=== PATIENT | female | born 1955 | race Caucasian/White ===

== ENCOUNTER 2017-10-29 09:08 | Day surgery (SDC) | payer BC ==
--- OUTSIDE RECORDS SUMMARY | 2017-10-29 09:12 | XMS REPORT | Clinical Summary ---
:1955 Author Organization [facility] Address [address] [place] [address] Care Team Providers Name Role Phone Bienvenido Adler MD Primary Care Provider Allergies Active Allergy Reactions Severity Noted Date Comments Amoxicillin-Pot Clavulanate Swelling 06/22/2017 Hives and difficulty breathing Iodine Swelling 06/22/2017 Hives and difficulty breathing Penicillin G Swelling 06/22/2017 Hives and difficulty breathing Current Medications Prescription Sig. Disp. Refills Start End Date Status Date folic acid Take 1 mg by mouth Active (FOLVITE) 1 MG daily. tablet metoprolol Take 25 mg by Active succinate XL mouth daily. (TOPROL-XL) 25 mg 24 hr tablet potassium chloride Take 10 mEq by Active (K-DUR,KLOR-CON) 10 mouth daily. MEQ CR tablet VITAMIN B COMPLEX Take 100 mg by Active (B COMPLEX 1 ORAL) mouth daily. pantoprazole Take 40 mg by Active (PROTONIX) 20 MG EC mouth 2 (two) tablet times a day. levothyroxine Take 50 mcg by Active (SYNTHROID, mouth every LEVOXYL) 50 mcg morning. tablet furosemide (LASIX) Take 80 mg by Active 40 mg tablet mouth daily. spironolactone Take 100 mg by Active (ALDACTONE) 100 MG mouth daily. tablet furosemide (LASIX) Take by mouth 2 07/01/20 Discontinued 40 mg tablet (two) times a day. 17 spironolactone Take 100 mg by 07/01/20 Discontinued (ALDACTONE) 100 MG mouth daily. 17 tablet potassium chloride Take 10 mEq by 07/01/20 Discontinued (KLOR-CON) 20 mEq mouth daily. 17 packet cyanocobalamin 1000 Take 100 mcg by 07/01/20 Discontinued MCG tablet mouth daily. 17 metoprolol Take 25 mg by 07/01/20 Discontinued succinate XL mouth daily. 17 (TOPROL-XL) 25 mg 24 hr tablet metoprolol tartrate Take 1 tablet (25 60 tablet 0 07/01/20 Discontinued (LOPRESSOR) 25 mg mg total) by mouth 7 17 tablet 2 (two) times a day for 30 days. Hold dose for Systolic BP < 110 mmHg furosemide (LASIX) Take 1 tablet (40 60 tablet 0 07/01/20 Discontinued 40 mg tablet mg total) by mouth 7 17 2 (two) times a day for 30 days. Do start taking Lasix until Wednesday07/05/2017 spironolactone Take 1 tablet (100 30 tablet 0 07/01/20 Discontinued (ALDACTONE) 100 MG mg total) by mouth 7 17 tablet daily for 30 days. Do start taking Spironolactone until Wednesday07/05/2017 potassium chloride Take 10 mEq by 15 packet 0 07/01/20 Discontinued (KLOR-CON) 20 mEq mouth daily for 30 7 17 packet days. Do start taking Potassium until Wednesday07/05/2017 pantoprazole Take 1 tablet (40 60 tablet 0 07/01/20 Discontinued (PROTONIX) 40 MG EC mg total) by mouth 7 17 tablet 2 (two) times a day for 30 days. levothyroxine Take 1 tablet (50 30 tablet 0 07/01/20 Discontinued (SYNTHROID, mcg total) by 7 17 LEVOXYL) 50 mcg mouth daily for 30 tablet days. B complex-vitamin Take 1 tablet by 30 tablet 0 07/01/20 Discontinued C-folic acid mouth daily for 30 7 17 (FOLBEE PLUS 5 MG) days. May use over 5 mg tablet per the counter tablet Centrum chewable multivitamin thiamine 100 MG Take 1 tablet (100 30 tablet 0 07/01/20 Discontinued tablet mg total) by mouth 7 17 daily for 30 days. furosemide (LASIX) Take 1 tablet (40 60 tablet 0 07/01/20 Discontinued 40 mg tablet mg total) by mouth 7 17 2 (two) times a day for 30 days. Do not start taking Lasix until Wednesday07/05/2017 potassium chloride Take 10 mEq by 15 packet 0 07/01/20 Discontinued (KLOR-CON) 20 mEq mouth daily for 30 7 17 packet days. Do not start taking Potassium until Wednesday07/05/2017 spironolactone Take 1 tablet (100 30 tablet 0 07/01/20 Discontinued (ALDACTONE) 100 MG mg total) by mouth 7 17 tablet daily for 30 days. Do not start taking Spironolactone until Wednesday07/05/2017 B complex-vitamin Take 1 tablet by 30 tablet 0 08/01/19 C-folic acid mouth daily for 30 7 18 (FOLBEE PLUS 5 MG) days. May use over 5 mg tablet per the counter tablet Centrum chewable multivitamin furosemide (LASIX) Take 1 tablet (40 60 tablet 0 08/04/19 40 mg tablet mg total) by mouth 7 18 2 (two) times a day for 30 days. Do not start taking Lasix until Wednesday07/05/2017 levothyroxine Take 1 tablet (50 30 tablet 0 08/01/19 (SYNTHROID, mcg total) by 7 18 LEVOXYL) 50 mcg mouth daily for 30 tablet days. metoprolol tartrate Take 1 tablet (25 60 tablet 0 07/31/19 (LOPRESSOR) 25 mg mg total) by mouth 7 18 tablet 2 (two) times a day for 30 days. Hold dose for Systolic BP < 110 mmHg pantoprazole Take 1 tablet (40 60 tablet 0 07/31/19 (PROTONIX) 40 MG EC mg total) by mouth 7 18 tablet 2 (two) times a day for 30 days. potassium chloride Take 10 mEq by 15 packet 0 07/31/19 (KLOR-CON) 20 mEq mouth daily for 30 7 18 packet days. Do not start taking Potassium until Wednesday07/05/2017 spironolactone Take 1 tablet (100 30 tablet 0 08/04/19 (ALDACTONE) 100 MG mg total) by mouth 7 18 tablet daily for 30 days. Do not start taking Spironolactone until Wednesday07/05/2017 thiamine 100 MG Take 1 tablet (100 30 tablet 0 08/01/19 tablet mg total) by mouth 7 18 daily for 30 days. (can buy from [id number]) Active Problems Problem Noted Date Nonalcoholic fatty liver disease 08/23/2017 Alcoholic cirrhosis of liver 08/23/2017 Lymphedema 08/23/2017 Ascites 08/23/2017 Disorder of liver 06/22/2017 Electrolyte and fluid disorder 06/22/2017 Fluid overload 06/22/2017 Portal hypertension 06/22/2017 Overview: Added automatically from request for surgery [id number] Anemia 06/22/2017 Overview: Added automatically from request for surgery [id number] Encounters Date Type Specialty Care Team Description 09/13/19 Transcribe Transplant Dami Carpio 18 Orders Filiberto 08/26/19 Telephone Transplant Pricila Coelho Call 18 Jana Mendiola MA 08/23/19 Telephone Transplant Pedro, Referral - Liver Txp 18 JENNIFER Hamm 06/30/20 Telephone Transplant Pedro, other (possible liver 17 JENNIFER Hammlocomotive engineer diesel referral-social/financial screening first. ) 06/25/20 Anesthesia Gastroenterology Dhother, 17 Event Sudheer Ahumada MD 06/25/20 Procedure Pass Gastroenterology 17 06/25/20 Procedure Pass Gastroenterology 17 06/25/20 Surgery Gastroenterology Gerry Arriola ESOPHAGOGASTRODUODENOSCOPY Melissa Valero MD (EGD) 06/22/20 [facility], Portal hypertension (Primary Dx); 17 - Encounter Medicine MD Rochelle Anemia, unspecified type; 07/01/20 Disorder of liver 17 after 10/28/2016 Immunizations Name Dates Previously Given Next Due FLUCELVAX QUAD PF (0.5mL syringe) 07/01/2017 Social History Tobacco Use Types Packs/Day Years Used Date Never Smoker Smokeless Tobacco: Never Used Alcohol Use Drinks/Week oz/Week Comments Yes 90 Cans of beer 54.0 Sex Assigned at Date Recorded Not on file Last Filed Vital Signs Vital Sign Reading Time Taken Blood Pressure 123/58 07/01/2017 3:26 PM GUIDE DOG TRAINER Pulse 77 07/01/2017 3:26 PM GUIDE DOG TRAINER Temperature 35.8 C (96.4 F) 07/01/2017 3:26 PM GUIDE DOG TRAINER Respiratory Rate 18 07/01/2017 3:26 PM GUIDE DOG TRAINER Oxygen Saturation 98% 07/01/2017 3:26 PM GUIDE DOG TRAINER Inhaled Oxygen Concentration - - Weight 73 kg (161 lb) 08/26/2017 3:10 PM GUIDE DOG TRAINER Height 157.5 cm (5' 2") 08/26/2017 3:10 PM GUIDE DOG TRAINER Body Mass Index 29.45 08/26/2017 3:10 PM GUIDE DOG TRAINER Plan of Treatment Health Maintenance Due Date Last Done Comments PAP SMEAR 1975 COLONOSCOPY 2004 MAMMOGRAM 2004 ZOSTER VACCINE 2014 INFLUENZA VACCINE 02/23/2018 07/01/2017 Procedures Procedure Name Priority Date/Time Associated Comments Diagnosis ESOPHAGOGASTRODUODENOSCOPY 06/25/2017 Portal (EGD) 8:00 AM GUIDE DOG TRAINER hypertension ECHOCARDIOGRAM 2D COMPLETE W Routine 06/24/2017 Results for MMODE SPECTRAL COLOR DOPPLER 9:39 AM GUIDE DOG TRAINER this procedure ([id number]) are in the results section. after 10/28/2016 Results Smear review (07/01/2017 5:13 AM)Only the most recent of7 resultswithin the time period is included. Component Value Ref Range Platelet slide review Mkd decreased (A) Anisocytosis Moderate Polychromasia Moderate Ovalocytes Moderate Enlarged platelets Moderate (A) Giant platelets Occasional Specimen Performing Laboratory [facility] DEPARTMENT OF PATHOLOGY AND GENOMIC MEDICINE [address] [place] [address] Direct Janine' (JESENIA) (07/01/2017 5:13 AM) Component Value Ref Range IgG Janine NEG Anti-complement NEG Specimen Performing Laboratory Blood [facility] DEPARTMENT OF PATHOLOGY AND GENOMIC MEDICINE [address] [place] [address] Estimated GFR (07/01/2017 5:13 AM)Only the most recent of10 resultswithin the time period is included. Component Value Ref Range GFR Non Af Amer 35 (A) mL/min/1.73 m2 GFR Af Amer 42 (A) mL/min/1.73 m2 Comment: Chronic kidney disease: <60 mL/min/1.73m2 Kidney failure: <15 mL/min/1.73m2 The estimated GFR is calculated from the IDMS-traceable Modification of Diet in Renal Disease Equation. The accuracy of the calculation is poor when the creatinine is normal. Calculated values >90 mL/min/1.73m2 are not reported. This equation has not been validated in children (<18 years), women, the elderly (>70 years), or ethnic groups other than Caucasians and Americans. Specimen Performing Laboratory Plasma specimen [facility] DEPARTMENT OF PATHOLOGY AND [facility] [address] [place] [address] Immunofixation, serum (07/01/2017 5:13 AM) Component Value Ref Range Immunofixation, serum SEE COMMENTComment: See electrophoresis report below. Specimen Performing Laboratory Serum [facility] DEPARTMENT OF PATHOLOGY AND [address] [address] Prothrombin time with INR (07/01/2017 5:13 AM)Only the most recent of10 resultswithin the time period is included. Component Value Ref Range Prothrombin time 24.4 (H) 12.0 - 15.0 sec INR 2.2 Comment: The International Normalized Ratio (INR) is a therapeutic monitoring tool for patients who are stable on oral anticoagulant therapy. An INR of 2.0-3.0 is suggested for deep vein thrombosis/pulmonary embolism. Specimen Performing Laboratory Blood [facility] OF PATHOLOGY AND [address] [address] Reticulocyte count (07/01/2017 5:13 AM)Only the most recent of2 resultswithin the time period is included. Component Value Ref Range Retic %, auto 3.8 (H) 0.5 - 2.1 % Retic absolute, auto 0.0975 0.0210 - 0.1155 m/uL Specimen Performing Laboratory Blood [facility] DEPARTMENT OF PATHOLOGY AND [address] [address] CBC with platelet and differential (07/01/2017 5:13 AM)Only the most recent of10 resultswithin the time period is included. Component Value Ref Range WBC 3.63 (L) 4.50 - 11.00 k/uL RBC 2.54 (L) 4.20 - 5.50 m/uL HGB 8.5 (L) 12.0 - 16.0 g/dL HCT 25.5 (L) 37.0 - 47.0 % MCV 100.4 (H) 82.0 - 100.0 fL MCH 33.5 27.0 - 34.0 pg MCHC 33.3 31.0 - 37.0 g/dL RDW - SD 72.7 (H) 37.0 - 55.0 fL MPV 11.5 8.8 - 13.2 fL Platelet count 44 (L) 150 - 400 k/uL Nucleated RBC 0.00 /100 WBC Neutrophils 53.4 39.0 - 69.0 % Lymphocytes 30.0 25.0 - 45.0 % Monocytes 11.3 (H) 0.0 - 10.0 % Eosinophils 3.9 0.0 - 5.0 % Basophils 0.8 0.0 - 1.0 % Immature granulocytes 0.6Comment: "Immature granulocytes" 0.0 - 1.0 % (promyelocytes, myelocytes, metamyelocytes) Specimen Performing Laboratory Blood [facility] DEPARTMENT OF PATHOLOGY AND [facility] [address] [place] [address] Serum electrophoresis (07/01/2017 5:13 AM) Component Value Ref Range Protein 6.0 (L) 6.3 - 8.3 g/dL Comment: 4.6-7.0 g/dL 1 week 4.4-7.6 g/dL 7 months-1year5.1-7.3 g/dL 1-2 years5.6-7.5 g/dL >3 years6.0-8.0 g/dL 18-150 6.3-8.3 g/dL SPE albumin 4.97 4.00 - 5.30 g/dL SPE alpha 1 0.09 (L) 0.10 - 0.25 g/dL SPE alpha 2 0.14 (L) 0.58 - 0.84 g/dL SPE beta 0.19 (L) 0.50 - 1.10 g/dL SPE gamma 0.61 0.60 - 1.30 g/dL SPE extended interpretation See Comment Comment: Abnormal serum protein study due to the presence of a band in the gamma region that immunofixes as monoclonal IgG [place]. This band is present at a concentration of 0.1 g/dL. Uninvolved gamma globulins are slightly decreased. Alpha-2 globulins are decreased most likely due to decreased haptoglobin and/or alpha-2 macroglobulin. 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 Component Value Ref Range Phosphorus 2.6 2.4 - 4.5 mg/dL Specimen Performing Laboratory Plasma specimen [facility] DEPARTMENT OF PATHOLOGY AND [address] [address] Magnesium level (07/01/2017 5:13 AM)Only the most recent of10 resultswithin the time period is included. Component Value Ref Range Magnesium 2.4 1.6 - 2.4 mg/dL Specimen Performing Laboratory Plasma specimen [facility] DEPARTMENT OF PATHOLOGY AND [address] [address] LDH (07/01/2017 5:13 AM)Only the most recent of2 resultswithin the time period is included. Component Value Ref Range LDH 188 87 - 225 U/L Specimen Performing Laboratory Plasma specimen [facility] DEPARTMENT PATHOLOGY [address] [address] Haptoglobin (07/01/2017 5:13 AM) Component Value Ref Range Haptoglobin <10 (L) 30 - 200 mg/dL Specimen Performing Laboratory Plasma specimen [facility] DEPARTMENT OF PATHOLOGY AND [address] [address] Comprehensive metabolic panel (07/01/2017 5:13 AM)Only the most recent of3 resultswithin the time period is included. Component Value Ref Range Sodium 145 135 - 148 mEq/L Potassium 3.9 3.5 - 5.0 mEq/L Chloride 97 (L) 98 - 112 mEq/L CO2 33 (H) 24 - 31 mEq/L Anion gap 15 7 - 15 mEq/L Comment: Starting from October , anion gap calculation no longer incorporates potassium. Please note the change. BUN 22 8 - 23 mg/dL Creatinine 1.5 (H) 0.5 - 0.9 mg/dL Glucose 97 65 - 99 mg/dL Calcium 9.7 8.8 - 10.2 mg/dL Protein 6.2 (L) 6.3 - 8.3 g/dL Comment: [place] 4.6-7.0 g/dL 1 week 4.4-7.6 g/dL 7 months-1year5.1-7.3 g/dL 1-2 years5.6-7.5 g/dL >3 years6.0-8.0 g/dL 18-150 6.3-8.3 g/dL Albumin 4.6 3.5 - 5.0 g/dL A/G ratio 2.9 0.7 - 3.8 Alkaline phosphatase 53 35 - 104 U/L AST 32 10 - 35 U/L ALT 6 5 - 50 U/L Total bilirubin 7.2 (H) 0.0 - 1.2 mg/dL Specimen Performing Laboratory Plasma specimen [facility] DEPARTMENT OF PATHOLOGY AND [address] [address] Prepare RBC, 2 Units (06/30/2017 10:30 AM)Only the most recent of2 resultswithin the time period is included. Component Value Ref Range Product name Red Blood Cells -1, Leukored Unit number [id number] Product code [id number] Dispense status Transfused Blood expiration date 20170707 Blood type code 6200 Blood type A POSITIVE Product name Red Blood Cells -1, Leukored Unit number [id number] Product code [id number] Dispense status Transfused Blood expiration date 20170706 Blood type code 6200 Blood type A POSITIVE Specimen Performing Laboratory [facility] DEPARTMENT OF PATHOLOGY AND [facility] [address] [place] [address] Type and screen (06/30/2017 10:30 AM)Only the most recent of2 resultswithin the time period is included. Component Value Ref Range ABO grouping A Rh type POS Antibody screen (gel) NEG Specimen Performing Laboratory Blood [facility] DEPARTMENT OF PATHOLOGY AND [address] [address] Manual differential (06/30/2017 6:33 AM) Component Value Ref Range Manual differential PERFORMED Neutrophils 58.0 39.0 - 69.0 % Lymphocytes 23.0 (L) 25.0 - 45.0 % Monocytes 11.0 (H) 0.0 - 10.0 % Eosinophils 6.0 (H) 0.0 - 5.0 % Basophils 0.0 0.0 - 1.0 % Metamyelocytes 1 % Promyelocytes 0 % Plasma cells 1 % Platelet slide review Mkd decreased (A) Anisocytosis Moderate Specimen Performing Laboratory [facility] DEPARTMENT OF PATHOLOGY AND [facility] [address] [place] [address] B natriuretic peptide (06/30/2017 6:33 AM)Only the most recent of5 resultswithin the time period is included. Component Value Ref Range BNP 341 (H) 0 - 100 pg/mL Specimen Performing Laboratory Blood [facility] DEPARTMENT OF PATHOLOGY AND GENOMIC MEDICINE [address] [place] [address] [place] Abdominal Doppler (06/29/2017 1:20 PM) Specimen Performing Laboratory [facility] [address] [place] [address] Narrative EXAMINATION:US ABDOMINAL DOPPLER CLINICAL HISTORY:cirrhosis COMPARISON:None. TECHNIQUE: Pierson scale, color Doppler and spectral waveform analysis of the hepatic vasculature. IMPRESSION: PORTAL VEIN:Main portal vein measures 1.2 cm, peak velocity measurement of 28.3 cm/s, within normal limits.Main, right and left portal veins are patent with appropriate hepatopedal flow. HEPATIC VEINS:The middle, right and left hepatic veins and IVC are patent and demonstrate acceptable waveforms. HEPATIC ARTERIES:The right and left hepatic arteries are identified with appropriate waveforms. SPLENIC ARTERY AND VEIN AND SMV:Splenic artery and vein at the splenic hilum are identified and are patent. Midline vessels are difficult to visualize including the SMV. Procedure Note Interface, Radiology Results Incoming - 06/29/2017 1:47 PM GUIDE DOG TRAINER EXAMINATION: US ABDOMINAL DOPPLER CLINICAL HISTORY: cirrhosis COMPARISON: None. TECHNIQUE: Pierson scale, color Doppler and spectral waveform analysis of the hepatic vasculature. IMPRESSION: PORTAL VEIN: Main portal vein measures 1.2 cm, peak velocity measurement of 28.3 cm/s, within normal limits. Main, right and left portal veins are patent with appropriate hepatopedal flow. HEPATIC VEINS: The middle, right and left hepatic veins and IVC are patent and demonstrate acceptable waveforms. HEPATIC ARTERIES: The right and left hepatic arteries are identified with appropriate waveforms. SPLENIC ARTERY AND VEIN AND SMV: Splenic artery and vein at the splenic hilum are identified and are patent. Midline vessels are difficult to visualize including the SMV. US Abdomen Complete (06/29/2017 12:30 PM) Specimen Performing Laboratory [facility] [address] [place] [address] Narrative EXAM: US ABDOMEN COMPLETE CLINICAL DATA:CIRRHOSIS COMPARISON: NONE. FINDINGS: 1.Liver contours are lobulated, and overall echogenicity mildly elevated. Findings compatible with clinical history of cirrhosis. A small right lobe liver cyst is noted measuring 7 mm. No other lesions are noted. Gallbladder not visualized and may be status post prior removal. Common duct is 6 mm and not dilated. 2.Splenomegaly measuring 15.6 cm in length. Moderate ascites noted. 3.Kidneys are 10 to 11 cm in length each, with no mass or hydronephrosis. Midline structures difficult to visualize due to body habitus and overlying bowel gas, but the intrahepatic IVC appears patent. Abdominal aorta and pancreas are not well seen. IMPRESSION: 1. Abdominal ultrasound findings as above. [facility]-[id number] Procedure Note [facility], Radiology Results Incoming - 06/29/2017 1:50 PM GUIDE DOG TRAINER EXAM: US ABDOMEN COMPLETE CLINICAL DATA: CIRRHOSIS COMPARISON: NONE. FINDINGS: 1. Liver contours are lobulated, and overall echogenicity mildly elevated. Findings compatible with clinical history of cirrhosis. A small right lobe liver cyst is noted measuring 7 mm. No other lesions are noted. Gallbladder not visualized and may be status post prior removal. Common duct is 6 mm and not dilated. 2. Splenomegaly measuring 15.6 cm in length. Moderate ascites noted. 3. Kidneys are 10 to 11 cm in length each, with no mass or hydronephrosis. Midline structures difficult to visualize due to body habitus and overlying bowel gas, but the intrahepatic IVC appears patent. Abdominal aorta and pancreas are not well seen. IMPRESSION: 1. Abdominal ultrasound findings as above. [facility]-[id number] Hepatic function panel (06/28/2017 8:23 AM)Only the most recent of6 resultswithin the time period is included. Component Value Ref Range Albumin 4.2 3.5 - 5.0 g/dL Total bilirubin 5.7 (H) 0.0 - 1.2 mg/dL Bilirubin direct 1.1 (H) 0.0 - 0.3 mg/dL Alkaline phosphatase 45 35 - 104 U/L Protein 5.8 (L) 6.3 - 8.3 g/dL Comment: [place] 4.6-7.0 g/dL 1 week 4.4-7.6 g/dL 7 months-1year5.1-7.3 g/dL 1-2 years5.6-7.5 g/dL >3 years6.0-8.0 g/dL 18-150 6.3-8.3 g/dL ALT 6 5 - 50 U/L AST 18 10 - 35 U/L Specimen Performing Laboratory Plasma specimen [facility] DEPARTMENT OF PATHOLOGY AND GENOMIC MEDICINE [address] [place] [address] Basic metabolic panel (06/28/2017 8:23 AM)Only the most recent of7 resultswithin the time period is included. Component Value Ref Range Sodium 145 135 - 148 mEq/L Potassium 3.3 (L) 3.5 - 5.0 mEq/L Chloride 96 (L) 98 - 112 mEq/L CO2 34 (H) 24 - 31 mEq/L Anion gap 15 7 - 15 mEq/L Comment: Starting from October , anion gap calculation no longer incorporates potassium. Please note the change. BUN 19 8 - 23 mg/dL Creatinine 1.4 (H) 0.5 - 0.9 mg/dL Glucose 95 65 - 99 mg/dL Calcium 9.4 8.8 - 10.2 mg/dL Specimen Performing Laboratory Plasma specimen [facility] DEPARTMENT OF PATHOLOGY AND GENOMIC MEDICINE [address] [place] [address] Hemochromatosis (HFE) 3 mutations (06/25/2017 5:01 AM) Component Value Ref Range HFE PCR specimen Whole Blood C282Y hemochromatosis mutation Negative H63D hemochromatosis mutation Negative S65C hemochromatosis mutation Negative Hemochromatosis mutation See Note interpretation Comment: Indication for testing: Carrier screening or diagnostic testing for hereditary hemochromatosis. Hemochromatosis Interpretive Results: Negative WT: C282Y: NegativeThe patient is negative for the HFE C282Y mutation. H63D: NegativeThe patient is negative for the HFE H63D mutation. S65C: NegativeThe patient is negative for the HFE S65C mutation. Mutations in unidentified genes or other mutations in the HFE gene are not ruled out. This result has been reviewed and approved by Frances Brewer M.D., Ph.D. BACKGROUND INFORMATION: Hemochromatosis (HFE) 3 Mutations CHARACTERISTICS: Disorder of iron metabolism resulting in excessive iron storage leading to increased skin pigmentation, arthritis, hypogonadism, diabetes mellitus, heart arrhythmias/failure, cirrhosis and liver carcinoma. INCIDENCE: One in 300 individuals of [place] descent; unknown in other ethnicities. INHERITANCE: Autosomal recessive. PENETRANCE: 5 percent of C282Y homozygotes, 1 percent of C282Y/H63D compound heterozygotes and rare H63D homozygotes develop clinical symptoms. CAUSE: Two pathogenic HFE gene mutations on opposite chromosomes. MUTATIONS TESTED: p.C282Y (c.845G>A), p.H63D (c.187C>G), and p.S65C (c.193A>T). CLINICAL SENSITIVITY: 85 percent of hereditary hemochromatosis in Northern Europeans is caused by C282Y homozygosity and 5 percent by C282Y/H63D compound heterozygosity. METHODOLOGY: PCR and fluorescence monitoring. ANALYTICAL SENSITIVTY AND SPECIFICITY: 99 percent. LIMITATIONS: HFE mutations, other than those targeted, will not be detected. Diagnostic errors can occur due to rare sequence variations. This test is performed pursuant to an agreement with[employer]. Test developed and characteristics determined by [facility]. See Compliance Statement C: [employer] Performed by [facility], [address] [place] [id number] [email or web address], Myke Lorenzo MD - Lab. Director Specimen Performing Laboratory Serum [facility] [address] [place] [address] Hemoglobin & hematocrit (06/24/2017 12:55 PM)Only the most recent of2 resultswithin the time period is included. Component Value Ref Range HGB 7.8 (L) 12.0 - 16.0 g/dL HCT 23.9 (L) 37.0 - 47.0 % Specimen Performing Laboratory Blood [facility] DEPARTMENT OF PATHOLOGY AND GENOMIC MEDICINE [address] [place] [address] Pv duplex venous lower extremity (06/24/2017 10:43 AM) [facility] [address] [place] [address] Narrative Vascular Ultrasound Laboratory Lower Extremity Venous Report [address] [place] [address] Pat.Name:SUKHJINDER HOPKINS Pat.ID:[id number] .Date: 06/24/2017Refer.MD:DANNY STEEN MD Exam Time: 10:09:00 AM Study Type:LE Venous DOBAge:1955,62Y Sex: FEMALE Sonogrphr: Pj Minaya. Stat.:Inpatient Room:[facility] TapeVol: [place], CPT - 4: 86718 Echo Event ID:[id number] Order ID:[id number] Reason for Study:Bilateral leg edema and abdominal swelling, 4 month fluid overload, alcoholic cirrhosis Race:C SUMMARY: DUPLEX SCAN OBSERVATIONS Deep VeinsSuperficial Veins RightLeft RightLeft EIV Normal NormalGSV (prox) NormalNormal CFV Normal Normal (above knee) Femoral Normal Normal GSV (dist) Normal Normal Profunda Normal Normal (below knee) Popliteal Normal Normal PT (prox) Not Visualized Not visualizedSSV Not Visualized Not Visualized PT (dist) Not Visualized Normal Peroneal Not Visualized Not Visualized RIGHT: There is normal compressibility with no evidence of echogenic material noted within the lumen of the visualized veins. Colorflow and Doppler signals are normal. LEFT:There is normal compressibility with no evidence of echogenic material noted within the lumen of the visualized veins. Colorflow and Doppler signals are normal. PRELIMINARY FINDINGS 1. Normal venous duplex exam of the visualized veins. PHYSICIAN INTERPRETATION 1. Normal venous duplex exam of the visualized veins. Signed 06/24/2017 02:44 PM Shelli Miller MD, RPVI Procedure Note Interface, Radiology Results In - 06/24/2017 2:44 PM [facility] Vascular Ultrasound Laboratory Lower Extremity Venous Report [address] [place] [address] Pat.Name: SUKHJINDER HOPKINS Pat.ID: [id number] .Date: 06/24/2017 Refer.MD: DANNY STEEN MD Exam Time: 10:09:00 AM Study Type:LE Venous Age: 10 1955,62Y Sex: FEMALE Sonogrphr: Brandi Alcaraz RVT Pat. Stat.:Inpatient Room: [facility] Tape Vol: [place], CPT - 4: 15596 Echo Event ID:[id number] Order ID: [id number] Reason for Study:Bilateral leg edema and abdominal swelling, 4 month fluid overload, alcoholic cirrhosis Race: C SUMMARY: DUPLEX SCAN OBSERVATIONS Deep Veins Superficial Veins Right Left Right Left EIV Normal Normal GSV (prox) Normal Normal CFV Normal Normal (above knee) Femoral Normal Normal GSV (dist) Normal Normal Profunda Normal Normal (below knee) Popliteal Normal Normal PT (prox) Not Visualized Not visualized SSV Not Visualized Not Visualized PT (dist) Not Visualized Normal Peroneal Not Visualized Not Visualized RIGHT: There is normal compressibility with no evidence of echogenic material noted within the lumen of the visualized veins. Colorflow and Doppler signals are normal. LEFT:There is normal compressibility with no evidence of echogenic material noted within the lumen of the visualized veins. Colorflow and Doppler signals are normal. PRELIMINARY FINDINGS 1. Normal venous duplex exam of the visualized veins. PHYSICIAN INTERPRETATION 1. Normal venous duplex exam of the visualized veins. Signed 06/24/2017 02:44 PM Shelli Miller MD, VI Echocardiogram complete w contrast and 3D if needed (06/24/2017 9:39 AM) Specimen Performing Laboratory [facility] [address] [place] [address] Narrative Echocardiography Report [address] [place] [address].Name:SUKHJINDER HOPKINS Pat.ID:[id number] .Date: 06/24/2017Refer.MD:ROCHELLE FIGUEROA MD Exam Time: 8:29:00 AMStudy Type:Routine Echo Height:61inWeight:153lb BSA: 1.69 m2 DOBAge:1955,62Y Sex: FEMALEBP:165/80 HR:85 bpm Sonogrphr: Natividad Romero RDCS, Jennifer Jaquez Pat. Stat.:Inpatient Room:[facility] Study Status:Final Echo Event ID:[id number] Order ID:[id number] Reason for Study:Cirrhosis, rule out CHF or pulmonary hypertension Cirrhosis,rule out CHF or pulmonary hypertension History / Clinical:Hyperlipidemia, Hypertension Procedures:2D Echo, Colorflow Doppler Race:C SUMMARY: LV EF is hyperdynamic. RV systolic function is normal. LV filling pressure is normal. Suboptimal/insufficient TR jet. Estimated PA systolic pressure is at least 41-46 mmHg, assuming a mean RAP of 5-10 mmHg. FINDINGS: LV: LV size is mildly enlarged. There is moderate eccentric LV hypertrophy.LV EF is hyperdynamic. Overall wall motion is hyperdynamic.Estimated EF is >70%. RV: RV size is normal. RV systolic function is normal. RV wall motionis normal. LA: LA volume is severely enlarged. RA: RA size is normal. AO: Aortic root diameter is normal. CHICA: No pericardial effusion. AV: No structural AV abnormalities noted. MV: Mild thickening and calcification of mitral leaflets. Mild tomoderate mitral regurgitation. PV: No structural PV abnormalities noted. TV: No structural TV abnormalities noted. A trace of tricuspid regurgitation Kemp: LV relaxation is normal. LV filling pressure is normal. Other:Suboptimal/insufficient TR jet. Estimated PA systolic pressureis at least 41-46 mmHg, assuming a mean RAP of 5-10mmHg. Ascites is present. MEASUREMENTS: DOPPLER LVOT Stroke Vol LVOT 1.8 cmLVOT CO9.1 l/min LVOT TVI42.2 cmLVOT CI5.4 l/m/m2 LVOT Tm338 [id number] bpm LVOT SV107.3 ml 2D Parasternal Long Watson LVOT 2 cmLA Ds4 cm LVIDd5.3 cmIndex 3.2 cm/m Ao Rtd 2.9 cm Index1.7 cm/m LVIDs2.7 cmLV Zofb041.6 g(87-129) LV%fs 49.2 % LVM Index 128.2 g/m2 IVSd 1 cmRWT0.4 LVPWd1.1 cm LA Sng Plane LA Area 24.1 cm2(8.8-23.4) LA Vol78.6 ml Index46.5 ml/m LA LngAx 6.3 cm RA Sng Plane RA Area 15.7 cm2(8.3-19.5) RA Vol39.8 ml Index23.6 ml/m RA LngAx 5 cm Signed 06/24/2017 02:15 PM Malathi Keys M.D. Procedure Note Interface, Radiology Results In - 06/24/2017 2:15 PM [employer] TRA[employer] Echocardiography Report [address] [place] [address] Pat.Name: SUKHJINDER HOPKINS Pat.ID: [id number] .Date: 06/24/2017 Refer.MD: ROCHELLE FIGUEROA MD Exam Time: 8:29:00 AM Study Type:Routine Echo Height: 61in Weight: 153lb BSA: 1.69 m2 Age: 11 1955,62Y Sex: FEMALE BP: 165/80 HR: 85 bpm Sonogrphr: Natividad Romero RDCS, Sara Burrell Pat. Stat.:Inpatient Room: [facility] Study Status:Final Echo Event ID:[id number] Order ID: [id number] Reason for Study:Cirrhosis, rule out CHF or pulmonary hypertension Cirrhosis,rule out CHF or pulmonary hypertension History / Clinical:Hyperlipidemia, Hypertension Procedures:2D Echo, Colorflow Doppler Race: C SUMMARY: LV EF is hyperdynamic. RV systolic function is normal. LV filling pressure is normal. Suboptimal/insufficient TR jet. Estimated PA systolic pressure is at least 41-46 mmHg, assuming a mean RAP of 5-10 mmHg. FINDINGS: LV: LV size is mildly enlarged. There is moderate eccentric LV hypertrophy. LV EF is hyperdynamic. Overall wall motion is hyperdynamic. Estimated EF is >70%. RV: RV size is normal. RV systolic function is normal. RV wall motion is normal. LA: LA volume is severely enlarged. RA: RA size is normal. AO: Aortic root diameter is normal. CHICA: No pericardial effusion. AV: No structural AV abnormalities noted. MV: Mild thickening and calcification of mitral leaflets. Mild to moderate mitral regurgitation. PV: No structural PV abnormalities noted. TV: No structural TV abnormalities noted. A trace of tricuspid regurgitation Kemp: LV relaxation is normal. LV filling pressure is normal. Other: Suboptimal/insufficient TR jet. Estimated PA systolic pressure is at least 41-46 mmHg, assuming a mean RAP of 5-10 mmHg. Ascites is present. MEASUREMENTS: DOPPLER LVOT Stroke Vol LVOT 1.8 cm LVOT CO 9.1 l/min LVOT TVI 42.2 cm LVOT CI 5.4 l/m/m2 LVOT Tm 338 msec HR 85 bpm LVOT SV 107.3 ml 2D Parasternal Long Watson LVOT 2 cm LA Ds 4 cm LVIDd 5.3 cm Index 3.2 cm/m Ao Rtd 2.9 cm Index 1.7 cm/m LVIDs 2.7 cm LV Mass 216.6 g (87-129) LV%fs 49.2 % LVM Index 128.2 g/m2 IVSd 1 cm RWT 0.4 LVPWd 1.1 cm LA Sng Plane LA Area 24.1 cm2 (8.8-23.4) LA Vol 78.6 ml Index 46.5 ml/m LA LngAx 6.3 cm RA Sng Plane RA Area 15.7 cm2 (8.3-19.5) RA Vol 39.8 ml Index 23.6 ml/m RA LngAx 5 cm Signed 06/24/2017 02:15 PM Malathi Keys M.D. Total iron binding capacity (06/24/2017 5:32 AM) Component Value Ref Range Iron level 84 37 - 145 ug/dL Iron binding capacity 101 (L) 200 - 400 ug/dL % Saturation 83.2 (H) 15.0 - 38.0 % Specimen Performing Laboratory Plasma specimen [facility] [address] [address] Thyroperoxidase antibody (06/24/2017 5:32 AM) Component Value Ref Range Thyroperoxidase Ab 1.6 0.0 - 9.0 IU/mL Specimen Performing Laboratory Serum [facility] [address] [address] Folate level (06/24/2017 5:32 AM) Component Value Ref Range Folate 14.1 4.8 - 24.2 ng/mL Specimen Performing Laboratory Serum [facility] [address] [address] Ferritin level (06/24/2017 5:32 AM) Component Value Ref Range Ferritin level 307 (H) 13 - 150 ng/mL Specimen Performing Laboratory Plasma specimen [facility] [address] [address] Vitamin B12 level (06/24/2017 5:32 AM) Component Value Ref Range Vitamin B12 1,120 (H) 211 - 946 pg/mL Comment: Significant overlap exists between normal and deficiency states. However, most patients with deficiencies will have Serum B12 <200 pg/mL. Specimen Performing Laboratory Serum [facility] MED[facility] [address] [place] [address] WANG (06/24/2017 4:00 AM) Component Value Ref Range WANG screen Not Detected Not-Detected Specimen Performing Laboratory Blood [facility] [address] [address] XR Chest 1 Vw (06/23/2017 11:43 AM) Specimen Performing Laboratory [facility] [address] [place] [address] Narrative EXAMINATION:XR CHEST 1 VW CLINICAL HISTORY:SHORTNESS OF BREATH COMPARISON:None IMPRESSION: Lungs are slightly hypoinflated. No definite infiltrate, consolidation, pleural effusion or pneumothorax. Enlarged cardiac silhouette. Osseous degenerative changes. [id number] Procedure Note Interface, Radiology Results Incoming - 06/23/2017 12:04 PM GUIDE DOG TRAINER EXAMINATION: XR CHEST 1 VW CLINICAL HISTORY: SHORTNESS OF BREATH COMPARISON: None IMPRESSION: Lungs are slightly hypoinflated. No definite infiltrate, consolidation, pleural effusion or pneumothorax. Enlarged cardiac silhouette. Osseous degenerative changes. [facility]-[id number] XR Abdomen 1 Vw (06/23/2017 11:42 AM) Specimen Performing Laboratory [facility] [address] [place] [address] Narrative EXAMINATION:XR ABDOMEN 1 VW CLINICAL HISTORY:Distention COMPARISON:None. FINDINGS: There is gas in the colon. No dilated loops of small bowel are seen. IMPRESSION: As above [facility]-[id number] Procedure Note [facility], Radiology Results Incoming - 06/23/2017 12:10 PM GUIDE DOG TRAINER EXAMINATION: XR ABDOMEN 1 VW CLINICAL HISTORY: Distention COMPARISON: None. FINDINGS: There is gas in the colon. No dilated loops of small bowel are seen. IMPRESSION: As above [facility]-[id number] US Limited (06/23/2017 11:31 AM) Specimen Per[facility] [address] [place] [address] Narrative EXAMINATION:US LIMITED CLINICAL HISTORY:ASCITES, Max removal of ascites 5 liters COMPARISON:None. IMPRESSION: 1.Limited abdominal ultrasound demonstrates small amount of fluid in the upper quadrants with the various trace amount of fluid in the right lower quadrant and a very small amount of fluid in left lower quadrant. Therapeutic paracentesis was not performed due to the small quantity of ascites. [facility]-[id number] Procedure Note Interface, Radiology Results Incoming - 06/24/2017 8:57 AM [employer]IDE DOG TRAINER EXAMINATION: US LIMITED CLINICAL HISTORY: ASCITES, Max removal of ascites 5 liters COMPARISON: None. IMPRESSION: 1. Limited abdominal ultrasound demonstrates small amount of fluid in the upper quadrants with the various trace amount of fluid in the right lower quadrant and a very small amount of fluid in left lower quadrant. Therapeutic paracentesis was not performed due to the small quantity of ascites. [facility]-[id number] Alpha fetoprotein (06/23/2017 5:11 AM) Component Value Ref Range Alpha fetoprotein 4.0 0.0 - 8.3 ng/mL Comment: The Oksana 8000 AFP immunoassay was used. Results obtained with different assay methods or kits should not be used interchangeably and may be different. Specimen Performing Laboratory Serum [facility] [address] [address] Thyroid stimulating hormone (06/23/2017 5:11 AM) Component Value Ref Range TSH 15.98 (H) 0.27 - 4.20 uIU/mL Specimen Performing Laboratory Plasma specimen [address] [address] T4 (06/23/2017 5:11 AM) Component Value Ref Range T4 4.2 (L) 4.5 - 11.7 ug/dL Specimen Performing Laboratory Plasma specimen [address] [address] Hemoglobin A1c (06/23/2017 5:11 AM) Component Value Ref Range Hemoglobin A1C 3.5 (L) 4.0 - 5.6 % Comment: HbA1c cutoffs for diagnosing diabetes: 4.0% - 5.6%=normal 5.7% - 6.4%=increased risk for diabetes (prediabetes) >=6.5%=diabetes Goals for glycemic control (ADA 2016) < 7.0%Target for non adults with diabetes. More or less stringent targets may be appropriate for individual patients. <7.5% Target for Children and adolescents with type 1 diabetes. Result double-checked. Specimen Performing Laboratory Blood [address] [address] Urinalysis, automated with microscopy (06/23/2017 5:00 AM) Component Value Ref Range Color, UA Straw Appearance, UA Clear Specific gravity, UA 1.005 1.001 - 1.035 pH, UA 5.0 5.0 - 8.5 Protein, UA Negative Negative Glucose, UA Negative Negative Ketones, UA Negative Negative Bilirubin, UA Negative Negative Blood, UA Large (A) Negative Nitrite, UA Negative Negative Urobilinogen, UA <2.0 <2.0 Leukocyte esterase, UA Negative Negative WBC, UA 1 0 - 4 /HPF RBC, UA 7 (H) 0 - 2 /HPF Bacteria, UA Few None seen Hyaline casts, UA 10 /LPF Yeast, UA None seen Yeast with pseudohyphae, UA None seen Specimen Performing Laboratory Urine [facility] DEPARTMENT OF PATHOLOGY AND GENOMIC MEDICINE [address] [place] [address] ALT (SGPT) (06/22/2017 11:43 PM) Component Value Ref Range ALT 14 5 - 50 U/L Specimen Performing Laboratory Plasma specimen [facility] DEPARTMENT OF PATHOLOGY [facility] MEDICINE [address] [place] [address] AST (SGOT) (06/22/2017 11:43 PM) Component Value Ref Range AST 35 10 - 35 U/L Specimen Performing Laboratory Plasma specimen [facility] DEPARTMENT OF PATHOLOGY [facility] [address] [place] [address] Potassium level (06/22/2017 11:43 PM) Component Value Ref Range Potassium 3.4 (L) 3.5 - 5.0 mEq/L Specimen Performing Laboratory Plasma specimen [facility] [address] [address] Bilirubin direct (06/22/2017 11:43 PM) Component Value Ref Range Bilirubin direct 1.7 (H) 0.0 - 0.3 mg/dL Specimen Performing Laboratory Plasma specimen [facility] DEPARTMENT PATHOLOGY [facility] [address] [place] [address] Ammonia level (06/22/2017 9:51 PM) Component Value Ref Range Ammonia 50 11 - 51 umol/L Specimen Performing Laboratory Blood [facility] DEPARTMENT OF PATHOLOGY [facility] [address] [place] [address] ECG 12 lead (06/22/2017 8:53 PM) Component Value Ref Range Ventricular rate 77 Atrial rate 77 DC interval 100 QRSD interval 90 QT interval 432 QTC interval 488 P axis 1 46 QRS axis 1 32 T wave axis 38 EKG impression Sinus rhythm with short DC with occasional premature ventricular complexes-Low voltage QRS-Nonspecific ST and T wave abnormality-Prolonged QT-Abnormal ECG-No previous ECGs available- Specimen Performing Laboratory [facility] MUSE [address] [place] [address] after 10/28/2016 Insurance Payer Benefit Plan / Group Subscriber ID Type Phone Address BCBS BCBS CHOICE PPO/[employer] PPO xxxxxxxxxxxx PPO [phone] [address]
[2017-10-29 10:05] LABS: Albumin 2.9 g/dL (3.2-5.5); Potassium 3.1 mEq/L (3.6-5.0); Protein, Total 6.2 g/dL (6.0-8.3)
[2017-10-29 10:19] LABS: Protime INR 1.23
[2017-10-29 10:20] LABS: Absolute Lymphocytes (CBC) 1.3 K/uL (0.7-4.9); Absolute Monocytes 0.4 K/uL (0.1-1.3); Absolute Neutrophil 2.4 K/uL (1.8-8.0); Basophils % 1.2 % (0-1.3); Eosinophils % 2.3 % (0-4.4); Hematocrit 29.6 % (36.0-45.0); Lymphocytes % 30.3 % (15.3-44.8); MCH 33.6 pg (27.0-35.0); MCV 95.8 fL (80-100); MPV 8.2 fL (7.6-11.3); MPV 8.5 fL (7.6-11.3); Monocytes % 9.3 % (3.3-12.3); RBC Red Blood Cell Count 3.09 M/uL (3.86-4.86)
[2017-10-29 11:20] LABS: Platelet Estimate DECR
--- NOTE | 2017-10-29 12:38 | RAD REPORT ---
EXAM DESCRIPTION: Ultrasound-guided paracentesis CLINICAL HISTORY: Ascites COMPARISON: None. FINDINGS: Informed consent was obtained and time-out was performed. Patient's abdomen was prepped and draped in the usual sterile fashion. 1% lidocaine was used for loca l anesthetic purposes. A small skin incision was made. A paracentesis catheter was guided into the peroneal cavity under son ographic guidance. A small amount of fluid was sent for requested lab studies. Following this, a large volume paracentes is was performed. 2 liters of ascitic fluid, yellowing clear, were obtained. The patient tolerated the procedure well. IMPRESSION: Successful ultrasound-guided paracentesis.
[2017-10-29] MEDS ORDERED: ALBUMIN HUMAN 25% 300 ML IV ONE (13:00)
[2017-10-29 14:42] LABS: Body Fluid Source PERITONEAL; Color of fluid Yellow (COLORLESS)
[2017-10-29 14:43] LABS: Appearance CLEAR (CLEAR); Body Fluid WBC 31 /mm^3
== END 2017-10-29 14:30 | disposition home or self-care (01) ==
LOC: DS 09:08
PROVIDERS: ATTEND Internal Medicine Gastroenterology
PROC: 0W9G3ZX Drainage of Peritoneal Cavity, Percutaneous Approach, Diagnostic (ICD-10-PCS; principal; 2017-10-29)
PROC: BW40ZZZ Ultrasonography of Abdomen (ICD-10-PCS; 2017-10-29)
DX: R18.8 Other ascites (principal); R63.5 Abnormal weight gain
CPT/HCPCS: 36415; 49083; 80053; 85025; 85049; 85610; 85730; 87070; 89050; 96365; P9047

== ENCOUNTER 2017-12-04 13:23 | Emergency (ER) | payer BC ==
--- OUTSIDE RECORDS SUMMARY | 2017-12-04 13:25 | XMS REPORT | Clinical Summary ---
:1955 Author Organization [facility] Address [address] [place] [address] Care Team Providers Name Role Phone Bienvenido [...] daily for 30 days. (can buy from [id number]) Active Problems Problem Noted Date Nonalcoholic fatty liver disease 08/23/2017 Alcoholic cirrhosis of liver 08/23/2017 Lymphedema 08/23/2017 Ascites 08/23/2017 Disorder of liver 06/22/2017 Electrolyte and fluid disorder 06/22/2017 Fluid overload 06/22/2017 Portal hypertension 06/22/2017 Overview: Added automatically from request for surgery [id number] Anemia 06/22/2017 Overview: Added automatically from request for surgery [id number] Encounters Date Type Specialty Care Team Description 09/13/19 Transcribe Transplant Dami Carpio 18 Orders Filiberto 08/26/19 Telephone Transplant Meliton, Returning Call 18 Jana Mendiola MA 08/23/19 Telephone Transplant Pedro, Referral - Liver Txp 18 JENNIFER Hamm 06/30/20 Telephone Transplant Pedro, other (possible liver 17 Noris, safety net maker referral-social/financial screening first. ) 06/25/20 Anesthesia Gastroenterology Dhother, 17 Event Sudheer Ahumada MD 06/25/20 Procedure Pass Gastroenterology 17 06/25/20 Procedure Pass Gastroenterology 17 06/25/20 Surgery Gastroenterology Gerry Arriola ESOPHAGOGASTRODUODENOSCOPY Melissa SMD Jeromy (EGD) 06/22/20 [facility] Internal [facility], Portal hypertension (Primary Dx); 17 - Encounter Medicine MD Rochelle Anemia, unspecified type; 07/01/20 Disorder of liver 17 after 12/03/2016 Immunizations Name Dates Previously Given Next Due FLUCELVAX QUAD PF (0.5mL syringe) 07/01/2017 Social History Tobacco Use Types Packs/Day Years Used Date Never Smoker Smokeless Tobacco: Never Used Alcohol Use Drinks/Week oz/Week Comments Yes 90 Cans of beer 54.0 Sex Assigned at Date Recorded Not on file Last Filed Vital Signs Vital Sign Reading Time Taken Blood Pressure 123/58 07/01/2017 3:26 PM MEDICAL CLAIMS ASSISTANT Pulse 77 07/01/2017 3:26 PM MEDICAL CLAIMS ASSISTANT Temperature 35.8 C (96.4 F) 07/01/2017 3:26 PM MEDICAL CLAIMS ASSISTANT Respiratory Rate 18 07/01/2017 3:26 PM MEDICAL CLAIMS ASSISTANT Oxygen Saturation 98% 07/01/2017 3:26 PM MEDICAL CLAIMS ASSISTANT Inhaled Oxygen Concentration - - Weight 73 kg (161 lb) 08/26/2017 3:10 PM MEDICAL CLAIMS ASSISTANT Height 157.5 cm (5' 2") 08/26/2017 3:10 PM MEDICAL CLAIMS ASSISTANT Body Mass Index 29.45 08/26/2017 3:10 PM MEDICAL CLAIMS ASSISTANT Plan of Treatment Health Maintenance Due Date Last Done Comments PAP SMEAR 1975 COLONOSCOPY 2004 MAMMOGRAM 2004 SHINGRIX VACCINE (#1) 2004 ZOSTER VACCINE 2014 INFLUENZA VACCINE 02/23/2018 07/01/2017 Procedures Procedure Name Priority Date/Time Associated Comments Diagnosis ESOPHAGOGASTRODUODENOSCOPY 06/25/2017 Portal (EGD) 8:00 AM MEDICAL CLAIMS ASSISTANT hypertension ECHOCARDIOGRAM 2D COMPLETE W Routine 06/24/2017 Results for MMODE SPECTRAL COLOR DOPPLER 9:39 AM MEDICAL CLAIMS ASSISTANT this procedure (87477) are in the results section. after 12/03/2016 Results Smear review (07/01/2017 5:13 AM)Only the most recent of7 resultswithin the time period is included. Component Value Ref Range Platelet slide review Mkd decreased (A) Anisocytosis Moderate Polychromasia Moderate Ovalocytes Moderate Enlarged platelets Moderate (A) Giant platelets Occasional Specimen Performing Laboratory [facility]OMIC [facility]ICINE [address] [place] [address] Direct Janine' (JESENIA) (07/01/2017 5:13 AM) Component Value Ref Range IgG Janine NEG Anti-complement NEG Specimen Performing Laboratory Blood [facility] [address] [place] [address] Estimated GFR (07/01/2017 5:13 AM)Only the most [...] and Americans. Specimen Performing Laboratory Plasma specimen [facility] DEPARTMENT OF PATHOLOGY AND [address] [address] Immunofixation, serum (07/01/2017 5:13 AM) Component Value Ref Range Immunofixation, serum SEE COMMENTComment: See electrophoresis report below. Specimen Performing Laboratory Serum [facility] DEPARTMENT OF PATHOLOGY AND [address] [address] Prothrombin time with INR (07/01/2017 5:13 AM)Only [...] vein thrombosis/pulmonary embolism. Specimen Performing Laboratory Blood [facility] DEPARTMENT OF PATHOLOGY AND [address] [address] Reticulocyte count (07/01/2017 5:13 AM)Only the most recent of2 resultswithin the time period is included. Component Value Ref Range Retic %, auto 3.8 (H) 0.5 - 2.1 % Retic absolute, auto 0.0975 0.0210 - 0.1155 m/uL Specimen Performing Laboratory Blood [facility] DEPARTMENT OF PATHOLOGY AND [address] [address] CBC with platelet and differential (07/01/2017 5:13 [...] (promyelocytes, myelocytes, metamyelocytes) Specimen Performing Laboratory Blood [facility] DEPARTMENT OF PATHOLOGY AND [facility] [address] [place] [address] Serum electrophoresis (07/01/2017 5:13 AM) Component Value [...] gamma region that immunofixes as monoclonal IgG [place]. This band is present at a concentration of 0.1 g/dL. Uninvolved gamma globulins are slightly decreased. Alpha-2 globulins are decreased most likely due to decreased haptoglobin and/or alpha-2 macroglobulin. 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 Component Value Ref Range Phosphorus 2.6 2.4 - 4.5 mg/dL Specimen Performing Laboratory Plasma specimen [facility] DEPART[facility] PATHOLOGY AND [address] [address] Magnesium level (07/01/2017 5:13 AM)Only the most recent of10 resultswithin the time period is included. Component Value Ref Range Magnesium 2.4 1.6 - 2.4 mg/dL Specimen Performing Laboratory Plasma specimen [facility] DEPARTMENT OF PATHOLOGY AND [address] [address] LDH (07/01/2017 5:13 AM)Only the most recent of2 resultswithin the time period is included. Component Value Ref Range LDH 188 87 - 225 U/L Specimen Performing Laboratory Plasma specimen [facility] DEPART[facility] PATHOLOGY [address] [address] Haptoglobin (07/01/2017 5:13 AM) Component Value Ref Range Haptoglobin <10 (L) 30 - 200 mg/dL Specimen Performing Laboratory Plasma specimen [facility] PATHOLOGY AND [address] [address] Comprehensive metabolic panel (07/01/2017 5:13 AM)Only the [...] 6.2 (L) 6.3 - 8.3 g/dL Comment: [place] 4.6-7.0 g/dL 1 week 4.4-7.6 g/dL 7 months-1year5.1-7.3 g/dL 1-2 years5.6-7.5 g/dL >3 years6.0-8.0 g/dL 18-150 6.3-8.3 g/dL Albumin 4.6 3.5 - 5.0 g/dL A/G ratio 2.9 0.7 - 3.8 Alkaline phosphatase 53 35 - 104 U/L AST 32 10 - 35 U/L ALT 6 5 - 50 U/L Total bilirubin 7.2 (H) 0.0 - 1.2 mg/dL Specimen Performing Laboratory Plasma specimen [facility] DEPARTMENT OF PATHOLOGY AND [facility] [address] [place] [address] Prepare RBC, 2 Units (06/30/2017 10:30 AM)Only the most recent of2 resultswithin the time period is included. Component Value Ref Range Product name Red Blood Cells -1, Leukored Unit number [id number] Product code [id number] Dispense status Transfused Blood expiration date 20170707 Blood type code 6200 Blood type A POSITIVE Product name Red Blood Cells -1, Leukored Unit number [id number] Product code [id number] Dispense status Transfused Blood expiration date 20170706 Blood type code 6200 Blood type A POSITIVE Specimen Performing Laboratory [facility] DEPARTMENT OF PATHOLOGY AND [facility] [address] [place] [address] Type and screen (06/30/2017 10:30 AM)Only the most recent of2 resultswithin the time period is included. Component Value Ref Range ABO grouping A Rh type POS Antibody screen (gel) NEG Specimen Performing Laboratory Blood [facility] [place] [address] Manual differential (06/30/2017 6:33 AM) Component Value [...] decreased (A) Anisocytosis Moderate Specimen Performing Laboratory [facility] DEPARTMENT OF PATHOLOGY AND [facility] [address] [place] [address] B natriuretic peptide (06/30/2017 6:33 AM)Only the most recent of5 resultswithin the time period is included. Component Value Ref Range BNP 341 (H) 0 - 100 pg/mL Specimen Performing Laboratory Blood [facility] DEPART[facility] OF PATHOLOGY AND GENOMIC MEDICINE [address] [place] [address] US Abdominal Doppler (06/29/2017 1:20 PM) Specimen [facility] [address] [place] [address] Narrative EXAMINATION:US ABDOMINAL DOPPLER CLINICAL HISTORY:cirrhosis COMPARISON:None. [...] Radiology Results Incoming - 06/29/2017 1:47 PM MEDICAL CLAIMS ASSISTANT EXAMINATION: US ABDOMINAL DOPPLER CLINICAL HISTORY: cirrhosis [...] Complete (06/29/2017 12:30 PM) Specimen Performing [facility] [address] [place] [address] Narrative EXAM: US ABDOMEN COMPLETE CLINICAL DATA:CIRRHOSIS [...] IMPRESSION: 1. Abdominal ultrasound findings as above. [facility]-[id number] Procedure Note [facility], Radiology Results Incoming - 06/29/2017 1:50 PM MEDICAL CLAIMS ASSISTANT EXAM: US ABDOMEN COMPLETE CLINICAL DATA: CIRRHOSIS [...] IMPRESSION: 1. Abdominal ultrasound findings as above. [facility]-[id number] Hepatic function panel (06/28/2017 8:23 AM)Only the most recent of6 resultswithin the time period is included. Component Value Ref Range Albumin 4.2 3.5 - 5.0 g/dL Total bilirubin 5.7 (H) 0.0 - 1.2 mg/dL Bilirubin direct 1.1 (H) 0.0 - 0.3 mg/dL Alkaline phosphatase 45 35 - 104 U/L Protein 5.8 (L) 6.3 - 8.3 g/dL Comment: [place] 4.6-7.0 g/dL 1 week 4.4-7.6 g/dL 7 months-1year5.1-7.3 g/dL 1-2 years5.6-7.5 g/dL >3 years6.0-8.0 g/dL 18-150 6.3-8.3 g/dL ALT 6 5 - 50 U/L AST 18 10 - 35 U/L Specimen Performing Laboratory Plasma specimen [facility] OF PATHOLOGY AND GENOMIC MEDICINE [address] [place] [address] Basic metabolic panel (06/28/2017 8:23 AM)Only the [...] 10.2 mg/dL Specimen Performing Laboratory Plasma specimen [facility] OF PATHOLOGY AND GENOMIC MEDICINE [address] [place] [address] Hemochromatosis (HFE) 3 mutations (06/25/2017 5:01 AM) [...] test is performed pursuant to an agreement with[employer]. Test developed and characteristics determined by [facility]. See Compliance Statement C: [email or web address] Performed by [facility], [address] [place] [id number] [email or web address], Myke Lorenzo MD - Lab. Director Specimen Performing Laboratory Serum [address] [address] Hemoglobin & hematocrit (06/24/2017 12:55 PM)Only the most recent of2 resultswithin the time period is included. Component Value Ref Range HGB 7.8 (L) 12.0 - 16.0 g/dL HCT 23.9 (L) 37.0 - 47.0 % Specimen Performing Laboratory Blood [facility] DE[facility] OF PATHOLOGY AND GENOMIC MEDICINE [address] [place] [address] Pv duplex venous lower extremity (06/24/2017 10:43 AM) Specimen Performing Laboratory [facility] [address] [place] [address] Narrative Vascular Ultrasound Laboratory Lower Extremity Venous Report [address] [place] [address].Name:SUKHJINDER HOPKINS Pat.ID:[id number] .Date: 06/24/2017Refer.MD:DANNY STEEN MD Exam Time: 10:09:00 AM Study Type:LE Venous DOBAge:1955,62Y Sex: FEMALE Sonogrphr: Brandi Alcaraz RVClark. Stat.:Inpatient Room:[facility] TapeVol: [place], CPT - 4: 98409 Echo Event ID:[id number] Order ID:[id number] Reason for Study:Bilateral leg edema and abdominal [...] Radiology Results In - 06/24/2017 2:44 PM [facility] Vascular Ultrasound Laboratory Lower Extremity Venous Report [address] [place] [address] Pat.Name: SUKHJINDER HOPKINS Pat.ID: [id number] .Date: 06/24/2017 Refer.MD: DANNY STEEN MD Exam Time: 10:09:00 AM Study Type:LE Venous Age: 11 1955,62Y Sex: FEMALE Sonogrphr: Brandi Alcaraz RVT Pat. Stat.:Inpatient Room: [address] Vol: [place], CPT - 4: [address] Echo Event ID:[id number] Order ID: [id number] Reason for Study:Bilateral leg edema and abdominal [...] 9:39 AM) Specimen Performing Laboratory [facility] [address] [place] [address] Narrative Echocardiography Report [address] [place] [address] Pat.Name:SUKHJINDER HOPKINS Pat.ID:[id number] .Date: 06/24/2017Refer.MD:ROCHELLE FIGUEROA MD Exam Time: 8:29:00 AMStudy Type:Routine Echo Height:61inWeight: 153lb BSA: 1.69 m2 DOBAge:1955,62Y Sex: FEMALEBP:165/80 HR:85 bpm Sonogrphr: Natividad Romero RDCS, Jennifer Jaquez Pat. Stat.:Inpatient Room:[facility] Study Status:Final Echo Event ID:[id number] Order ID:[id number] Reason for Study:Cirrhosis, rule out CHF or [...] LVOT TVI42.2 cmLVOT CI5.4 l/m/m2 LVOT Tm338 coekTD36 bpm LVOT SV107.3 ml 2D Parasternal [place] LVOT 2 cmLA Ds4 cm LVIDd5.3 cmIndex 3.2 cm/m Ao Rtd 2.9 cm Index1.7 cm/m LVIDs2.7 cmLV Ifsq608.6 g(87-129) LV%fs 49.2 % LVM Index 128.2 g/m2 IVSd 1 cmRWT0.4 LVPWd1.1 cm LA Sng Plane LA Area 24.1 cm2(8.8-23.4) LA Vol78.6 ml Index46.5 ml/m LA LngAx 6.3 cm RA Sng Plane RA Area 15.7 cm2(8.3-19.5) RA Vol39.8 ml Index23.6 ml/m RA LngAx 5 cm Signed 06/24/2017 02:15 PM Malathi Keys M.D. Procedure Note Interface, Radiology Results In - 06/24/2017 2:15 PM MEDICAL CLAIMS ASSISTANT Echocardiography Report [address] [place] [address] Pat.Name: SUKHJINDER HOPKINS Pat.ID: [id number] .Date: 06/24/2017 Refer.MD: ROCHELLE FIGUEROA MD Exam Time: 8:29:00 AM Study Type:Routine Echo Height: 61in Weight: 153lb BSA: 1.69 m2 Age: 11 1955,62Y Sex: FEMALE BP: 165/80 HR: 85 bpm Sonogrphr: Natividad Romero RDCS, Sara Burrell Pat. Stat.:Inpatient Room: [facility] Study Status:Final Echo Event ID:[id number] Order ID: [id number] Reason for Study:Cirrhosis, rule out CHF or [...] LVOT SV 107.3 ml 2D Parasternal [place] LVOT 2 cm LA Ds 4 cm [...] 5 cm Signed 06/24/2017 02:15 PM Malathi Kesy M.D. Total iron binding capacity (06/24/2017 5:32 AM) Component Value Ref Range Iron level 84 37 - 145 ug/dL Iron binding capacity 101 (L) 200 - 400 ug/dL % Saturation 83.2 (H) 15.0 - 38.0 % Specimen Performing Laboratory Plasma specimen [facility] PATH[facility] [address] [address] Thyroperoxidase antibody (06/24/2017 5:32 AM) Component Value Ref Range Thyroperoxidase Ab 1.6 0.0 - 9.0 IU/mL Specimen Performing Laboratory Serum [facility] [address] [address] Folate level (06/24/2017 5:32 AM) Component Value Ref Range Folate 14.1 4.8 - 24.2 ng/mL Specimen Performing Laboratory Serum [facility] PATHOLOG[facility] [address] [address] Ferritin level (06/24/2017 5:32 AM) Component Value Ref Range Ferritin level 307 (H) 13 - 150 ng/mL Specimen Performing Laboratory Plasma specimen [facility] PATHOLOG[facility] [address] [address] Vitamin B12 level (06/24/2017 5:32 AM) Component Value Ref Range Vitamin B12 1,120 (H) 211 - 946 pg/mL Comment: Significant overlap exists between normal and deficiency states. However, most patients with deficiencies will have Serum B12 <200 pg/mL. Specimen Performing Laboratory Serum [facility] PATHOLOG[facility] [address] [address] WANG (06/24/2017 4:00 AM) Component Value Ref Range WANG screen Not Detected Not-Detected Specimen Performing Laboratory Blood [facility] DEPARTMENT PATHOLOGY [facility] MED[facility] [address] [place] [address] XR Chest 1 Vw (06/23/2017 11:43 AM) Specimen Performing Laboratory [facility] [address] [place] [address] Narrative EXAMINATION:XR CHEST 1 VW CLINICAL HISTORY:SHORTNESS OF BREATH COMPARISON:None IMPRESSION: Lungs are slightly hypoinflated. No definite infiltrate, consolidation, pleural effusion or pneumothorax. Enlarged cardiac silhouette. Osseous degenerative changes. [facility]-[id number] Procedure Note Interface, Radiology Results Incoming - 06/23/2017 12:04 PM MEDICAL CLAIMS ASSISTANT EXAMINATION: XR CHEST 1 VW CLINICAL HISTORY: SHORTNESS OF BREATH COMPARISON: None IMPRESSION: Lungs are slightly hypoinflated. No definite infiltrate, consolidation, pleural effusion or pneumothorax. Enlarged cardiac silhouette. Osseous degenerative changes. [facility]-[id number] XR Abdomen 1 Vw (06/23/2017 11:42 AM) Specimen Performing Laboratory [facility] [address] [place] [address] Narrative EXAMINATION:XR ABDOMEN 1 VW CLINICAL HISTORY:Distention COMPARISON:None. FINDINGS: There is gas in the colon. No dilated loops of small bowel are seen. IMPRESSION: As above [facility]-[id number] Procedure Note Interface, Radiology Results Incoming - 06/23/2017 12:10 PM MEDICAL CLAIMS ASSISTANT EXAMINATION: XR ABDOMEN 1 VW CLINICAL HISTORY: Distention COMPARISON: None. FINDINGS: There is gas in the colon. No dilated loops of small bowel are seen. IMPRESSION: As above [facility]-[id number] US Limited (06/23/2017 11:31 AM) Specimen Performing Laboratory [facility] [address] [place] [address] Narrative EXAMINATION:US LIMITED CLINICAL HISTORY:ASCITES, Max removal of ascites 5 liters COMPARISON:None. IMPRESSION: 1.Limited abdominal ultrasound demonstrates small amount of fluid in the upper quadrants with the various trace amount of fluid in the right lower quadrant and a very small amount of fluid in left lower quadrant. Therapeutic paracentesis was not performed due to the small quantity of ascites. [facility]-[id number] Procedure Note Interface, Radiology Results Incoming - 06/24/2017 8:57 AM MEDICAL CLAIMS ASSISTANT EXAMINATION: US LIMITED CLINICAL HISTORY: ASCITES, Max removal of ascites 5 liters COMPARISON: None. IMPRESSION: 1. Limited abdominal ultrasound demonstrates small amount of fluid in the upper quadrants with the various trace amount of fluid in the right lower quadrant and a very small amount of fluid in left lower quadrant. Therapeutic paracentesis was not performed due to the small quantity of ascites. [facility]-[id number] Alpha fetoprotein (06/23/2017 5:11 AM) Component Value Ref Range Alpha fetoprotein 4.0 0.0 - 8.3 ng/mL Comment: The Oksana 8000 AFP immunoassay was used. Results obtained with different assay methods or kits should not be used interchangeably and may be different. Specimen Performing Laboratory Serum [facility] DEPARTMENT OF PATHOLOGY AND [facility] [address] [place] [address] Thyroid stimulating hormone (06/23/2017 5:11 AM) Component Value Ref Range TSH 15.98 (H) 0.27 - 4.20 uIU/mL Specimen Performing Laboratory Plasma specimen [facility] DEPARTMENT OF PATHOLOGY AND [address] [address] T4 (06/23/2017 5:11 AM) Component Value Ref Range T4 4.2 (L) 4.5 - 11.7 ug/dL Specimen Performing Laboratory Plasma specimen [facility] DEPARTMENT OF PATHOLOGY AND [facility] [address] [place] [address] Hemoglobin A1c (06/23/2017 5:11 AM) Component Value [...] diabetes. Result double-checked. Specimen Performing Laboratory Blood [facility] DEPARTMENT OF PATHOLOGY [facility] [address] [place] [address] Urinalysis, automated with microscopy (06/23/2017 5:00 AM) [...] UA None seen Specimen Performing Laboratory Urine [facility] AND [facility] [address] [place] [address] ALT (SGPT) (06/22/2017 11:43 PM) Component Value Ref Range ALT 14 5 - 50 U/L Specimen Performing Laboratory Plasma specimen [facility] DEPARTMENT OF PATHOLOGY [facility] [address] [place] [address] AST (SGOT) (06/22/2017 11:43 PM) Component Value Ref Range AST 35 10 - 35 U/L Specimen Performing Laboratory Plasma specimen [facility] DEPARTMENT OF PATHOLOGY AND [facility] [address] [place] [address] Potassium level (06/22/2017 11:43 PM) Component Value Ref Range Potassium 3.4 (L) 3.5 - 5.0 mEq/L Specimen Performing Laboratory Plasma specimen [facility] DEPARTMENT OF PATHOLOGY [address] [address] Bilirubin direct (06/22/2017 11:43 PM) Component Value Ref Range Bilirubin direct 1.7 (H) 0.0 - 0.3 mg/dL Specimen Performing Laboratory Plasma specimen [facility] DEPARTMENT OF PATHOLOGY [address] [address] Ammonia level (06/22/2017 9:51 PM) Component Value Ref Range Ammonia 50 11 - 51 umol/L Specimen Performing Laboratory Blood [facility] DEPARTMENT OF PATHOLOGY AND [facility] [address] [place] [address] ECG 12 lead (06/22/2017 8:53 PM) Component Value Ref Range Ventricular rate 77 Atrial rate 77 WA interval 100 QRSD interval 90 QT interval 432 QTC interval 488 P axis 1 46 QRS axis 1 32 T wave axis 38 EKG impression Sinus rhythm with short WA with occasional premature ventricular complexes-Low voltage QRS-Nonspecific ST and T wave abnormality-Prolonged QT-Abnormal ECG-No previous ECGs available- Specimen Performing Laboratory [facility] [address] [place] [address] after 12/03/2016 Insurance Payer Benefit Plan / Group Subscriber ID Type Phone Address BCBS BCBS CHOICE PPO/FEDERAL EMPL PPO xxxxxxxxxxxx PPO
[2017-12-04 14:48] LABS: Absolute Lymphocytes (CBC) 1.2 K/uL (0.7-4.9); Absolute Monocytes 0.3 K/uL (0.1-1.3); Absolute Neutrophil 2.7 K/uL (1.8-8.0); Eosinophils % 0.8 % (0-4.4); Hematocrit 26.8 % (36.0-45.0); Lymphocytes % 27.7 % (15.3-44.8); MCV 95.6 fL (80-100); MPV 8.5 fL (7.6-11.3); Monocytes % 7.2 % (3.3-12.3)
[2017-12-04 14:50] LABS: Protime INR 1.4
[2017-12-04 15:04] LABS: Potassium 4.3 mEq/L (3.6-5.0)
[2017-12-04 15:10] LABS: Bilirubin Direct 0.9 mg/dL (0-0.2); Bilirubin Total 3.8 mg/dL (0.3-1.2)
[2017-12-04 15:55] LABS: Urine Blood NEGATIVE (NEG); Urine Glucose NEGATIVE (NEG); Urine Protein NEGATIVE (NEG); Urine Specific Gravity >1.030 (1.005-1.030)
--- NOTE | 2017-12-04 16:45 | EDPHYS ---
Physician Documentation [facility] Name: Coby Hopkins Age: 62 yrs Sex: Female : 1955 Arrival Date: 12/04/2017 Time: 13:26 Bed 8 Private MD: ED Physician Renato Tesfaye HPI: 12/04 15:37 This 62 yrs old Female presents to ER via Wheelchair with complaints of Mouth jr8 Problem. 15:37 The patient presents with bleeding. The problem is located in the mouth. Onset: The jr8 symptoms/episode began/occurred acutely, yesterday. Duration: The symptoms are continuous. Modifying factors: The symptoms are alleviated by nothing, the symptoms are aggravated by nothing. Associated signs and symptoms: The patient has no apparent associated signs or symptoms. Severity of symptoms: At their worst the symptoms were mild, in the emergency department the symptoms are unchanged. The patient has not experienced similar symptoms in the past. The patient has not recently seen a physician. 15:37 Denies trauma to mouth or recent dental work . jr8 Historical: - Allergies: 13:39 Augmentin; la1 13:39 PENICILLINS; la1 13:39 Iodine; la1 - PMHx: 13:39 Cirrhosis; Hypertension; la1 - Immunization history:: Adult Immunizations up to date. - Social history:: Smoking status: Patient/guardian denies using tobacco. ROS: 15:37 Eyes: Negative for injury, pain, redness, and discharge, Neck: Negative for injury, jr8 pain, and swelling, Cardiovascular: Negative for chest pain, palpitations, and edema, Respiratory: Negative for shortness of breath, cough, wheezing, and pleuritic chest pain, Abdomen/GI: Negative for abdominal pain, nausea, vomiting, diarrhea, and constipation, Back: Negative for injury and pain, MS/Extremity: Negative for injury and deformity, Skin: Negative for injury, rash, and discoloration, Neuro: Negative for headache, weakness, numbness, tingling, and seizure. 15:37 ENT: Negative for ear pain, Teeth pain nasal discharge, rhinorrhea, sinus congestion, sinus pain, sore throat, dental pain, difficulty swallowing, difficulty handling secretions, hoarseness. Exam: 15:37 Head/Face: Normocephalic, atraumatic. Eyes: Pupils equal round and reactive to light, jr8 extra-ocular motions intact. Lids and lashes normal. Conjunctiva and sclera are non-icteric and not injected. Cornea within normal limits. Periorbital areas with no swelling, redness, or edema. Neck: Trachea midline, no thyromegaly or masses palpated, and no cervical lymphadenopathy. Supple, full range of motion without nuchal rigidity, or vertebral point tenderness. No Meningismus. Cardiovascular: Regular rate and rhythm with a normal S1 and S2. No gallops, murmurs, or rubs. Normal PMI, no JVD. No pulse deficits. Respiratory: Lungs have equal breath sounds bilaterally, clear to auscultation and percussion. No rales, rhonchi or wheezes noted. No increased work of breathing, no retractions or nasal flaring. Back: No spinal tenderness. No costovertebral tenderness. Full range of motion. Skin: Warm, dry with normal turgor. Normal color with no rashes, no lesions, and no evidence of cellulitis. MS/ Extremity: Pulses equal, no cyanosis. Neurovascular intact. Full, normal range of motion. Neuro: Awake and alert, GCS 15, oriented to person, place, time, and situation. Cranial nerves II-XII grossly intact. Motor strength 5/5 in all extremities. Sensory grossly intact. Cerebellar exam normal. Normal gait. 15:37 Abdomen/GI: Inspection: distension, that is mild, Bowel sounds: active, all quadrants, Palpation: abdomen is soft and non-tender, in all quadrants, Indicators: McBurney's point is not tender, Barrera's sign is negative, Rovsing's sign is negative. 15:38 ENT: Nose: is normal, Mouth: Lips: moist, Oral mucosa: pink and intact, moist, Tongue: jr8 is moist, Posterior pharynx: Airway: patent, Tonsils: are normal in appearance, Uvula: midline, non-edematous, no erythema, swelling, is not appreciated, erythema, is not appreciated, Dental exam: bleeding gums diffusely . Vital Signs: 13:39 BP 126 / 47; Pulse 93; Resp 19; Temp 97.5; Pulse Ox 100% on R/A; Weight 78.02 kg; la1 Height 5 ft. 1 in. (154.94 cm); 14:30 BP 129 / 36; Pulse 90; Resp 18; Pulse Ox 99% ; sv 15:09 BP 144 / 55; Pulse 88; Resp 16; Pulse Ox 99% ; sv 15:30 BP 121 / 54; Pulse 85; Resp 18; Pulse Ox 100% ; sv 16:30 Pulse 88; Resp 16; Pulse Ox 98% ; sv 17:20 BP 106 / 88; Pulse 93; Resp 18; Pulse Ox 99% on R/A; sv 18:04 BP 145 / 61; Pulse 95; Resp 16; Pulse Ox 100% ; sv 18:58 BP 145 / 48; Pulse 93; Resp 18; Pulse Ox 100% ; sv 19:20 BP 140 / 47; Pulse 90; Resp 18; Temp 98.2(O); Pulse Ox 98% on R/A; lp1 13:39 Body Mass Index 32.50 (78.02 kg, 154.94 cm) la1 MDM: 13:45 Patient medically screened. [facility] 16:43 Data reviewed: vital signs, nurses notes, lab test result(s), and as a result, I will jr admit patient. Data interpreted: Pulse oximetry: on room air is 99 %. Interpretation: normal. Counseling: I had a detailed discussion with the patient and/or guardian regarding: the historical points, exam findings, and any diagnostic results supporting the discharge/admit diagnosis, lab results, the need to transfer to another facility, [facility] does not immediately have the required specialist. ED course: [facility] team consulted about case. Accepted patient with hematology consult and medicine admission . 12/04 13:45 Order name: Basic Metabolic Panel; Complete Time: 15: [facility] 12/04 13:45 Order name: CBC with Diff; Complete Time: 15:11 [facility] 12/04 13:45 Order name: Hepatic Function; Complete Time: 15:11 [facility] 12/04 13:45 Order name: PT-INR; Complete Time: 15: [facility] 12/04 14:37 Order name: AMMONIA; Complete Time: 15: [facility] 12/04 14:38 Order name: Urine Dipstick--Ancillary (enter results) ag 12/04 13:45 Order name: IV Saline Lock; Complete Time: 14:19 [facility] 12/04 13:45 Order name: Labs collected and sent; Complete Time: 14:19 [facility] 12/04 13:45 Order name: Urine Dipstick-Ancillary (obtain specimen); Complete Time: 15:09 jr8 Administered Medications: No medications were administered Point of Care Testing: Guaiac: 15:48 Stool Guaiac: Positive; Stool Hemoccult Control: Pass; sv Disposition: 12/04/17 16:44 Transfer ordered to [facility]. Diagnosis are Anemia, Alcoholic cirrhosis of liver, Thrombocytopenia, unspecified, Gum Bleeding. - Reason for transfer: Higher level of care. - Accepting physician is [facility]. - Condition is Stable. - Problem is new. - Symptoms are unchanged. Addendum: 12/06/2017 09:06 Co-signature as Attending Physician, Renato Tesfaye MD I agree with the assessment and c cisneros plan of care. Signatures: Dispatcher [employer] EDRenato Holland MD MD cha Pena, Laura, RN RN lp1 Qamar Amaya PA PA jr8 Rubén Joseph RN RN la1 Corrections: (The following items were deleted from the chart) 12/04 19:30 16:44 12/04/2017 16:44 Transfer ordered to [facility]. Diagnosis is lp1 Anemia; Alcoholic cirrhosis of liver; Thrombocytopenia, unspecified; Gum Bleeding. Reason for transfer: Higher level of care. Accepting physician is [facility]. Condition is Stable. Problem is new. Symptoms are unchanged. jr8
--- NOTE | 2017-12-04 16:45 | ER ---
Nurse's Notes [facility] Name: Coby Hopkins Age: 62 yrs Sex: Female : 1955 Arrival Date: 12/04/2017 Time: 13:26 Bed 8 Private MD: Diagnosis: Anemia;Alcoholic cirrhosis of liver;Thrombocytopenia, unspecified;Gum Bleeding Presentation: 12/04 13:38 Presenting complaint: Patient states: My mouth has been bleeding since yesterday and I la1 have a hx of cirrhosis. They told me at urgent care if it keeps bleeding I may need some plt. Transition of care: patient was not received from another setting of care. Onset of symptoms was December 04, 2017. Initial Sepsis Screen: Does the patient meet any 2 criteria? No. Patient's initial sepsis screen is negative. Does the patient have a suspected source of infection? No. Patient's initial sepsis screen is negative. Care prior to arrival: None. 13:38 Method Of Arrival: Wheelchair la1 13:38 Acuity: SHAMA 3 la1 Historical: - Allergies: 13:39 Augmentin; la1 13:39 PENICILLINS; la1 13:39 Iodine; la1 - PMHx: 13:39 Cirrhosis; Hypertension; la1 - Immunization history:: Adult Immunizations up to date. - Social history:: Smoking status: Patient/guardian denies using tobacco. Screenin:30 Abuse screen: Denies threats or abuse. Denies injuries from another. Nutritional sv screening: No deficits noted. Tuberculosis screening: No symptoms or risk factors identified. Fall Risk None identified. Assessment: 14:30 General: Appears in no apparent distress. uncomfortable, Behavior is calm, cooperative, sv appropriate for age. Pain: Denies pain. Neuro: Level of Consciousness is awake, alert, obeys commands, Oriented to person, place, time, situation, Moves all extremities. Full function Gait is steady, Speech is normal. Cardiovascular: Patient's skin is warm and dry. Respiratory: Respiratory effort is even, unlabored, Respiratory pattern is regular, symmetrical. GI: Abdomen is round distended, noted to have ascites. EENT: Oral mucosa is moist. Poor dentition noted. multiple dental caries noted. Mild bleeding noted to the right side of her teeth and right side of tongue.. Derm: Skin is jaundiced. Musculoskeletal: Range of motion: intact in all extremities. 15:22 Reassessment: Patient appears in no apparent distress at this time. No changes from sv previously documented assessment. Patient and/or family updated on plan of care and expected duration. Pain level reassessed. Patient is alert, oriented x 3, equal unlabored respirations, skin warm/dry/pink. 15:49 Reassessment: Patient appears in no apparent distress at this time. No changes from sv previously documented assessment. Patient and/or family updated on plan of care and expected duration. Pain level reassessed. Patient is alert, oriented x 3, equal unlabored respirations, skin warm/dry/pink. 17:25 Reassessment: Patient appears in no apparent distress at this time. No changes from sv previously documented assessment. Patient and/or family updated on plan of care and expected duration. Pain level reassessed. Patient is alert, oriented x 3, equal unlabored respirations, skin warm/dry/pink. Attempted to call report to [facility], nurse unable to take report at this time. 18:03 Reassessment: Attempted to call report to [facility], nurse unable to take report at this time. 19:19 Reassessment: Patient is alert, oriented x 3, equal unlabored respirations, skin lp1 warm/dry/pink. Patient denies pain at this time. Reassessment: Patient aware of pending transfer, family at bedside. EENT: Poor dentition noted. slight bleeding noted. Vital Signs: 13:39 BP 126 / 47; Pulse 93; Resp 19; Temp 97.5; Pulse Ox 100% on R/A; Weight 78.02 kg; la1 Height 5 ft. 1 in. (154.94 cm); 14:30 BP 129 / 36; Pulse 90; Resp 18; Pulse Ox 99% ; sv 15:09 BP 144 / 55; Pulse 88; Resp 16; Pulse Ox 99% ; sv 15:30 BP 121 / 54; Pulse 85; Resp 18; Pulse Ox 100% ; sv 16:30 Pulse 88; Resp 16; Pulse Ox 98% ; sv 17:20 BP 106 / 88; Pulse 93; Resp 18; Pulse Ox 99% on R/A; sv 18:04 BP 145 / 61; Pulse 95; Resp 16; Pulse Ox 100% ; sv 18:58 BP 145 / 48; Pulse 93; Resp 18; Pulse Ox 100% ; sv 19:20 BP 140 / 47; Pulse 90; Resp 18; Temp 98.2(O); Pulse Ox 98% on R/A; lp1 13:39 Body Mass Index 32.50 (78.02 kg, 154.94 cm) la1 ED Course: 13:26 Patient arrived in ED. mr 13:39 Triage completed. la1 13:40 Arm band placed on right wrist. la1 13:43 Caren Jimenez RN is Primary Nurse. sv 13:45 Qamar Amaya PA is PHCP. jr8 13:45 Renato Tesfaye MD is Attending Physician. jr8 14:14 Inserted saline lock: 22 gauge in left antecubital area, using aseptic technique. sv ,using aseptic technique. IV inserted by human resources partner Daniel. Blood collected. 14:30 Patient has correct armband on for positive identification. Bed in low position. Call sv light in reach. Adult w/ patient. Door closed. Warm blanket given. Head of bed elevated. 18:58 No provider procedures requiring assistance completed. Patient transferred, IV remains sv in place. intact. 19:02 Report given to Laney RODRIGUEZ and Kiley RN. sv 19:04 Primary Nurse role handed off by Caren Jimenez RN sv 19:25 Kiley Hunter, RN is Primary Nurse. lp1 Administered Medications: No medications were administered Point of Care Testing: Guaiac: 15:48 Stool Guaiac: Positive; Stool Hemoccult Control: Pass; sv Outcome: 16:44 ER care complete, transfer ordered by . jr8 18:57 Transferred by ground EMS to [facility], Transfer form completed. X-rays sv sent w/ patient. Note: Report called to Khadar RODRIGUEZ at [facility]. 18:57 Condition: stable 18:57 Instructed on the need for transfer. 19:26 Transferred by ground EMS to [facility], Transfer form completed. X-rays lp1 sent w/ patient. Note: [facility] here for transfer 19:30 Patient left the ED. lp1 Signatures: Caren Jimenez, RN JENNIEFR ferguson ImerHilary mr Kiley Hunter RN RN lp1 Qamar Amaya PA PA jrRubén Nichols RN RN la1 Corrections: (The following items were deleted from the chart) 17:23 17:20 Pulse 93bpm; Resp 18bpm; Pulse Ox 99% RA; sv sv
== END 2017-12-04 19:30 | disposition short-term general hospital (02) ==
LOC: ER 13:23
DX: D64.9 Anemia, unspecified (principal); K70.30 Alcoholic cirrhosis of liver without ascites; D69.6 Thrombocytopenia, unspecified; I10 Essential (primary) hypertension; Z88.0 Allergy status to penicillin; Z88.1 Allergy status to other antibiotic agents; Z91.048 Other nonmedicinal substance allergy status
CPT/HCPCS: 36415; 80048; 80076; 81003; 82140; 85025; 85610; 99285

== ENCOUNTER 2018-01-11 06:39 | Day surgery (SDC) | payer BC ==
--- OUTSIDE RECORDS SUMMARY | 2018-01-11 06:42 | XMS REPORT | Clinical Summary ---
:1955 Author Organization [facility] Address [address] [place] [address] Care Team Providers Name Role Phone Bienvenido [...] mouth daily. (TOPROL-XL) 25 mg 24 hr tabletIndications: if SBP<110 or less, do not take VITAMIN B COMPLEX Take 100 mg by Active (B COMPLEX 1 ORAL) mouth daily. pantoprazole Take 40 mg by Active (PROTONIX) 20 MG EC mouth 2 (two) tablet times a day. levothyroxine Take 50 mcg by Active (SYNTHROID, mouth every LEVOXYL) 50 mcg morning. tablet spironolactone Take 100 mg by Active (ALDACTONE) 100 MG mouth 2 (two) tablet times a day. OLIVE LEAF EXTRACT Take 150 mg by Active ORAL mouth daily. ferrous sulfate 325 Take 325 mg by Active (65 FE) MG tablet mouth daily with breakfast. ascorbic acid, Take 1,000 mg by Active vitamin C, (VITAMIN mouth daily. C) 500 MG tablet therapeutic Take 1 tablet by Active multivitamin mouth daily. (THERAGRAN) tablet furosemide (LASIX) Take by mouth 2 [...] daily for 30 days. (can buy from [id number]) potassium chloride Take 10 mEq by 12/09/19 Discontinued (K-DUR,KLOR-CON) 10 mouth daily. 18 MEQ CR tablet furosemide (LASIX) Take 80 mg by 12/09/19 Discontinued 40 mg tablet mouth daily. 18 milk thistle 175 mg Take 175 mg by 12/09/19 Discontinued tablet mouth daily. 18 chlorhexidine Apply 15 mL to the 900 mL 0 01/08/20 (PERIDEX) 0.12 % mouth or throat 2 8 18 solution (two) times a day for 30 days. furosemide (LASIX) Take 2 tablets (80 60 tablet 0 01/08/20 40 mg tablet mg total) by mouth 8 18 daily for 30 days. magnesium oxide Take 1 tablet (400 30 tablet 0 01/08/20 (MAG-OX) 400 mg mg total) by mouth 8 18 tablet daily for 30 days. riFAXimin (XIFAXAN) Take 1 tablet (550 60 tablet 0 01/08/20 550 mg tablet mg total) by mouth 8 18 2 (two) times a day for 30 days. Active Problems Problem Noted Date GI (gastrointestinal hemorrhage) 12/04/2017 Nonalcoholic fatty liver disease 08/23/2017 Alcoholic cirrhosis of liver 08/23/2017 Lymphedema 08/23/2017 Ascites 08/23/2017 Disorder of liver 06/22/2017 Electrolyte and fluid disorder 06/22/2017 Fluid overload 06/22/2017 Portal hypertension 06/22/2017 Overview: Added automatically from request for surgery [id number] Anemia 06/22/2017 Overview: Added automatically from request for surgery [id number] Encounters Date Type Specialty Care Team Description 12/05/19 [facility], 18 - Encounter Medicine MD Rochelle 12/09/19 Cosmo Galdamez MD 09/13/19 Transcribe Transplant Dami Carpio 18 Orders Filiberto 08/26/19 Telephone Transplant [place], Returning Call 18 Jana Mendiola MA 08/23/19 Telephone Transplant Pedro, Referral - Liver Txp 18 JENNIFER Hamm 06/30/20 Telephone Transplant Pedro, other (possible liver 17 JENNIFER Hammfreight caller referral-social/financial screening first. ) 06/25/20 Anesthesia Gastroenterology Dhother, 17 Event Sudheer Ahumada MD 06/25/20 Procedure Pass Gastroenterology 17 06/25/20 Procedure Pass Gastroenterology 17 06/25/20 Surgery Gastroenterology Gerry Arriola ESOPHAGOGASTRODUODENOSCOPY Melissa Valero MD (EGD) 06/22/20 [facility], Portal hypertension (Primary Dx); 17 - Encounter Medicine MD Rochelle Anemia, unspecified type; 07/01/20 Disorder of liver 17 after 01/10/2017 Immunizations Name Dates Previously Given Next Due FLUCELVAX QUAD PF (0.5mL syringe) 07/01/2017 Social History Tobacco Use Types Packs/Day Years Used Date Never Smoker Smokeless Tobacco: Never Used Alcohol Use Drinks/Week oz/Week Comments Yes 90 Cans of beer 54.0 Sex Assigned at Date Recorded Not on file Last Filed Vital Signs Vital Sign Reading Time Taken Blood Pressure 113/56 12/08/2017 6:59 AM CDT Pulse 81 12/08/2017 6:59 AM CDT Temperature 36.6 C (97.9 F) 12/08/2017 6:59 AM CDT Respiratory Rate 20 12/08/2017 6:59 AM CDT Oxygen Saturation 92% 12/08/2017 6:59 AM CDT Inhaled Oxygen Concentration - - Weight 74.4 kg (164 lb 2 oz) 12/08/2017 5:00 AM CDT Height 154.9 cm (5' 1") 12/04/2017 9:37 PM CDT Body Mass Index 31.01 12/08/2017 5:00 AM CDT Plan of Treatment Health Maintenance Due Date Last Done Comments CERVICAL CANCER SCREENING 1975 BREAST CANCER SCREENING 2004 COLON CANCER SCREENING 2004 SHINGRIX VACCINE (#1) 2004 ZOSTER VACCINE 2014 INFLUENZA VACCINE 02/23/2018 07/01/2017 Procedures Procedure Name Priority Date/Time Associated Comments Diagnosis SMEAR REVIEW Routine 12/08/2017 Results for 5:07 AM CDT this procedure are in the results section. RETICULOCYTE COUNT Routine 12/08/2017 Results for 5:07 AM CDT this procedure are in the results section. ESTIMATED GFR Routine 12/08/2017 Results for 5:07 AM CDT this procedure are in the results section. PROTHROMBIN TIME WITH INR Routine 12/08/2017 Results for 5:07 AM CDT this procedure are in the results section. PHOSPHORUS LEVEL Routine 12/08/2017 Results for 5:07 AM CDT this procedure are in the results section. MAGNESIUM LEVEL Routine 12/08/2017 Results for 5:07 AM CDT this procedure are in the results section. HEPATIC FUNCTION PANEL Routine 12/08/2017 Results for 5:07 AM CDT this procedure are in the results section. BASIC METABOLIC PANEL Routine 12/08/2017 Results for 5:07 AM CDT this procedure are in the results section. HC COMPLETE BLD COUNT W/AUTO Routine 12/08/2017 Results for DIFF 5:07 AM CDT this procedure are in the results section. ECHOCARDIOGRAM 2D COMPLETE W Routine 12/07/2017 Results for MMODE SPECTRAL COLOR DOPPLER 6:16 PM CDT this procedure (03019) are in the results section. US ABDOMINAL PARACENTESIS Routine 12/07/2017 Results for IMAGING 12:50 PM CDT this procedure are in the results section. PROTEIN, MISC FLUID Routine 12/07/2017 Results for 11:51 AM CDT this procedure are in the results section. CELL COUNT AND DIFFERENTIAL, Routine 12/07/2017 Results for BODY FLUID 11:51 AM CDT this procedure are in the results section. GRAM STAIN Routine 12/07/2017 Results for 11:51 AM CDT this procedure are in the results section. AEROBIC CULTURE Routine 12/07/2017 Results for 11:51 AM CDT this procedure are in the results section. ANAEROBIC CULTURE Routine 12/07/2017 Results for 11:51 AM CDT this procedure are in the results section. TRANSFUSE PLATELETS Routine 12/07/2017 11:33 AM CDT PROTHROMBIN TIME WITH INR Routine 12/07/2017 Results for 5:37 AM CDT this procedure are in the results section. SMEAR REVIEW Routine 12/07/2017 Results for 5:31 AM CDT this procedure are in the results section. RETICULOCYTE COUNT Routine 12/07/2017 Results for 5:31 AM CDT this procedure are in the results section. HC COMPLETE BLD COUNT W/AUTO Routine 12/07/2017 Results for DIFF 5:31 AM CDT this procedure are in the results section. ESTIMATED GFR Routine 12/07/2017 Results for 4:00 AM CDT this procedure are in the results section. PHOSPHORUS LEVEL Routine 12/07/2017 Results for 4:00 AM CDT this procedure are in the results section. MAGNESIUM LEVEL Routine 12/07/2017 Results for 4:00 AM CDT this procedure are in the results section. HEPATIC FUNCTION PANEL Routine 12/07/2017 Results for 4:00 AM CDT this procedure are in the results section. BASIC METABOLIC PANEL Routine 12/07/2017 Results for 4:00 AM CDT this procedure are in the results section. TRANSFUSE RED BLOOD CELLS Routine 12/06/2017 2:00 PM CDT US ABDOMEN COMPLETE Routine 12/06/2017 Results for 11:47 AM CDT this procedure are in the results section. SMEAR REVIEW Routine 12/06/2017 Results for 6:29 AM CDT this procedure are in the results section. HC COMPLETE BLD COUNT W/AUTO Routine 12/06/2017 Results for DIFF 6:29 AM CDT this procedure are in the results section. ESTIMATED GFR Routine 12/06/2017 Results for 6:29 AM CDT this procedure are in the results section. VITAMIN D 25 HYDROXY LEVEL Routine 12/06/2017 Results for 6:29 AM CDT this procedure are in the results section. VITAMIN B1 LEVEL, WHOLE BLOOD Routine 12/06/2017 Results for 6:29 AM CDT this procedure are in the results section. VITAMIN B12 LEVEL Routine 12/06/2017 Results for 6:29 AM CDT this procedure are in the results section. TOTAL IRON BINDING CAPACITY Routine 12/06/2017 Results for 6:29 AM CDT this procedure are in the results section. RETICULOCYTE COUNT Routine 12/06/2017 Results for 6:29 AM CDT this procedure are in the results section. LDH Routine 12/06/2017 Results for 6:29 AM CDT this procedure are in the results section. FOLATE LEVEL Routine 12/06/2017 Results for 6:29 AM CDT this procedure are in the results section. FERRITIN LEVEL Routine 12/06/2017 Results for 6:29 AM CDT this procedure are in the results section. B NATRIURETIC PEPTIDE Routine 12/06/2017 Results for 6:29 AM CDT this procedure are in the results section. PROTHROMBIN TIME WITH INR Routine 12/06/2017 Results for 6:29 AM CDT this procedure are in the results section. PHOSPHORUS LEVEL Routine 12/06/2017 Results for 6:29 AM CDT this procedure are in the results section. MAGNESIUM LEVEL Routine 12/06/2017 Results for 6:29 AM CDT this procedure are in the results section. HEPATIC FUNCTION PANEL Routine 12/06/2017 Results for 6:29 AM CDT this procedure are in the results section. BASIC METABOLIC PANEL Routine 12/06/2017 Results for 6:29 AM CDT this procedure are in the results section. CBC WITH PLATELET AND Routine 12/06/2017 Results for DIFFERENTIAL 6:29 AM CDT this procedure are in the results section. XR PANOREX Routine 12/05/2017 Results for 6:32 PM CDT this procedure are in the results section. ECG 12-LEAD STAT 12/05/2017 Results for 10:55 AM CDT this procedure are in the results section. ESTIMATED GFR STAT 12/05/2017 Results for 8:47 AM CDT this procedure are in the results section. COMPREHENSIVE METABOLIC PANEL STAT 12/05/2017 Results for 8:47 AM CDT this procedure are in the results section. TROPONIN STAT 12/05/2017 Results for 8:47 AM CDT this procedure are in the results section. PROTHROMBIN TIME WITH INR Routine 12/05/2017 Results for 8:26 AM CDT this procedure are in the results section. HC COMPLETE BLD COUNT W/AUTO Routine 12/05/2017 Results for DIFF 8:26 AM CDT this procedure are in the results section. TRANSFUSE RED BLOOD CELLS Routine 12/05/2017 7:53 AM CDT URINALYSIS, AUTOMATED WITH Routine 12/05/2017 Results for MICROSCOPY 12:00 AM CDT this procedure are in the results section. ESTIMATED GFR Routine 12/04/2017 Results for 11:37 PM CDT this procedure are in the results section. ALPHA FETOPROTEIN Routine 12/04/2017 Results for 11:37 PM CDT this procedure are in the results section. T4 Routine 12/04/2017 Results for 11:37 PM CDT this procedure are in the results section. THYROID STIMULATING HORMONE Routine 12/04/2017 Results for 11:37 PM CDT this procedure are in the results section. LIPID PANEL Routine 12/04/2017 Results for 11:37 PM CDT this procedure are in the results section. PHOSPHORUS LEVEL Routine 12/04/2017 Results for 11:37 PM CDT this procedure are in the results section. MAGNESIUM LEVEL Routine 12/04/2017 Results for 11:37 PM CDT this procedure are in the results section. HEPATIC FUNCTION PANEL Routine 12/04/2017 Results for 11:37 PM CDT this procedure are in the results section. BASIC METABOLIC PANEL Routine 12/04/2017 Results for 11:37 PM CDT this procedure are in the results section. PREPARE PLATELET PHERESIS Timed 12/04/2017 Results for 11:18 PM CDT this procedure are in the results section. PREPARE RBC Timed 12/04/2017 Results for 11:18 PM CDT this procedure are in the results section. PREPARE RBC Timed 12/04/2017 Results for 11:18 PM CDT this procedure are in the results section. TYPE AND SCREEN Routine 12/04/2017 Results for 11:18 PM CDT this procedure are in the results section. HC COMPLETE BLD COUNT W/AUTO Routine 12/04/2017 Results for DIFF 11:18 PM CDT this procedure are in the results section. AMMONIA LEVEL Routine 12/04/2017 Results for 11:18 PM CDT this procedure are in the results section. AMMONIA LEVEL Routine 12/04/2017 Results for 11:18 PM CDT this procedure are in the results section. B NATRIURETIC PEPTIDE Routine 12/04/2017 Results for 11:18 PM CDT this procedure are in the results section. HEMOGLOBIN A1C Routine 12/04/2017 Results for 11:18 PM CDT this procedure are in the results section. XR CHEST 1 VW PORTABLE Routine 12/04/2017 Results for 11:12 PM CDT this procedure are in the results section. XR ABDOMEN 1 VW PORTABLE Routine 12/04/2017 Results for 11:12 PM CDT this procedure are in the results section. ECG 12-LEAD Routine 12/04/2017 Results for 10:25 PM CDT this procedure are in the results section. ESTIMATED GFR Routine 12/04/2017 Results for 10:12 PM CDT this procedure are in the results section. FIBRINOGEN Routine 12/04/2017 Results for 10:12 PM CDT this procedure are in the results section. PHOSPHORUS LEVEL Routine 12/04/2017 Results for 10:12 PM CDT this procedure are in the results section. MAGNESIUM LEVEL Routine 12/04/2017 Results for 10:12 PM CDT this procedure are in the results section. PARTIAL THROMBOPLASTIN TIME Routine 12/04/2017 Results for (PTT) 10:12 PM CDT this procedure are in the results section. PROTHROMBIN TIME WITH INR Routine 12/04/2017 Results for 10:12 PM CDT this procedure are in the results section. URIC ACID LEVEL Routine 12/04/2017 Results for 10:12 PM CDT this procedure are in the results section. HEPATIC FUNCTION PANEL Routine 12/04/2017 Results for 10:12 PM CDT this procedure are in the results section. LDH Routine 12/04/2017 Results for 10:12 PM CDT this procedure are in the results section. LACTIC ACID LEVEL Routine 12/04/2017 Results for 10:12 PM CDT this procedure are in the results section. BASIC METABOLIC PANEL Routine 12/04/2017 Results for 10:12 PM CDT this procedure are in the results section. IMMUNOFIXATION, SERUM Routine 07/01/2017 Results for 5:13 AM MACHINE PRECISION ENGRAVER this procedure are in the results section. SMEAR REVIEW Routine 07/01/2017 Results for 5:13 AM MACHINE PRECISION ENGRAVER this procedure are in the results section. ESTIMATED GFR Routine 07/01/2017 Results for 5:13 AM MACHINE PRECISION ENGRAVER this procedure are in the results section. DIRECT JANINE' (JESENIA) Routine 07/01/2017 Results for 5:13 AM MACHINE PRECISION ENGRAVER this procedure are in the results section. HAPTOGLOBIN Routine 07/01/2017 Results for 5:13 AM MACHINE PRECISION ENGRAVER this procedure are in the results section. RETICULOCYTE COUNT Routine 07/01/2017 Results for 5:13 AM MACHINE PRECISION ENGRAVER this procedure are in the results section. LDH Routine 07/01/2017 Results for 5:13 AM MACHINE PRECISION ENGRAVER this procedure are in the results section. SERUM ELECTROPHORESIS Routine 07/01/2017 Results for 5:13 AM MACHINE PRECISION ENGRAVER this procedure are in the results section. PROTHROMBIN TIME WITH INR Routine 07/01/2017 Results for 5:13 AM MACHINE PRECISION ENGRAVER this procedure are in the results section. MAGNESIUM LEVEL Routine 07/01/2017 Results for 5:13 AM MACHINE PRECISION ENGRAVER this procedure are in the results section. PHOSPHORUS LEVEL Routine 07/01/2017 Results for 5:13 AM MACHINE PRECISION ENGRAVER this procedure are in the results section. COMPREHENSIVE METABOLIC PANEL Routine 07/01/2017 Results for 5:13 AM MACHINE PRECISION ENGRAVER this procedure are in the results section. HC COMPLETE BLD COUNT W/AUTO Routine 07/01/2017 Results for DIFF 5:13 AM MACHINE PRECISION ENGRAVER this procedure are in the results section. PREPARE RBC Timed 06/30/2017 Results for 10:30 AM MACHINE PRECISION ENGRAVER this procedure are in the results section. TYPE AND SCREEN Timed 06/30/2017 Results for 10:30 AM MACHINE PRECISION ENGRAVER this procedure are in the results section. MANUAL DIFFERENTIAL Routine 06/30/2017 Results for 6:33 AM MACHINE PRECISION ENGRAVER this procedure are in the results section. ESTIMATED GFR Routine 06/30/2017 Results for 6:33 AM MACHINE PRECISION ENGRAVER this procedure are in the results section. B NATRIURETIC PEPTIDE Routine 06/30/2017 Results for 6:33 AM MACHINE PRECISION ENGRAVER this procedure are in the results section. PROTHROMBIN TIME WITH INR Routine 06/30/2017 Results for 6:33 AM MACHINE PRECISION ENGRAVER this procedure are in the results section. MAGNESIUM LEVEL Routine 06/30/2017 Results for 6:33 AM MACHINE PRECISION ENGRAVER this procedure are in the results section. PHOSPHORUS LEVEL Routine 06/30/2017 Results for 6:33 AM MACHINE PRECISION ENGRAVER this procedure are in the results section. COMPREHENSIVE METABOLIC PANEL Routine 06/30/2017 Results for 6:33 AM MACHINE PRECISION ENGRAVER this procedure are in the results section. CBC WITH PLATELET AND Routine 06/30/2017 Results for DIFFERENTIAL 6:33 AM MACHINE PRECISION ENGRAVER this procedure are in the results section. US ABDOMINAL DOPPLER Routine 06/29/2017 Results for 1:20 PM MACHINE PRECISION ENGRAVER this procedure are in the results section. US ABDOMEN COMPLETE Routine 06/29/2017 Results for 12:30 PM MACHINE PRECISION ENGRAVER this procedure are in the results section. PROTHROMBIN TIME WITH INR Routine 06/29/2017 Results for 8:06 AM MACHINE PRECISION ENGRAVER this procedure are in the results section. B NATRIURETIC PEPTIDE Routine 06/29/2017 Results for 8:06 AM MACHINE PRECISION ENGRAVER this procedure are in the results section. SMEAR REVIEW Routine 06/29/2017 Results for 7:05 AM MACHINE PRECISION ENGRAVER this procedure are in the results section. HC COMPLETE BLD COUNT W/AUTO Routine 06/29/2017 Results for DIFF 7:05 AM MACHINE PRECISION ENGRAVER this procedure are in the results section. ESTIMATED GFR Routine 06/29/2017 Results for 4:00 AM MACHINE PRECISION ENGRAVER this procedure are in the results section. MAGNESIUM LEVEL Routine 06/29/2017 Results for 4:00 AM MACHINE PRECISION ENGRAVER this procedure are in the results section. PHOSPHORUS LEVEL Routine 06/29/2017 Results for 4:00 AM MACHINE PRECISION ENGRAVER this procedure are in the results section. COMPREHENSIVE METABOLIC PANEL Routine 06/29/2017 Results for 4:00 AM MACHINE PRECISION ENGRAVER this procedure are in the results section. SMEAR REVIEW Routine 06/28/2017 Results for 8:23 AM MACHINE PRECISION ENGRAVER this procedure are in the results section. HEPATIC FUNCTION PANEL Routine 06/28/2017 Results for 8:23 AM MACHINE PRECISION ENGRAVER this procedure are in the results section. PROTHROMBIN TIME WITH INR Routine 06/28/2017 Results for 8:23 AM MACHINE PRECISION ENGRAVER this procedure are in the results section. B NATRIURETIC PEPTIDE Routine 06/28/2017 Results for 8:23 AM MACHINE PRECISION ENGRAVER this procedure are in the results section. ESTIMATED GFR Routine 06/28/2017 Results for 8:23 AM MACHINE PRECISION ENGRAVER this procedure are in the results section. MAGNESIUM LEVEL Routine 06/28/2017 Results for 8:23 AM MACHINE PRECISION ENGRAVER this procedure are in the results section. PHOSPHORUS LEVEL Routine 06/28/2017 Results for 8:23 AM MACHINE PRECISION ENGRAVER this procedure are in the results section. HC COMPLETE BLD COUNT W/AUTO Routine 06/28/2017 Results for DIFF 8:23 AM MACHINE PRECISION ENGRAVER this procedure are in the results section. BASIC METABOLIC PANEL Routine 06/28/2017 Results for 8:23 AM MACHINE PRECISION ENGRAVER this procedure are in the results section. HEPATIC FUNCTION PANEL Routine 06/27/2017 Results for 5:15 AM MACHINE PRECISION ENGRAVER this procedure are in the results section. PROTHROMBIN TIME WITH INR Routine 06/27/2017 Results for 5:15 AM MACHINE PRECISION ENGRAVER this procedure are in the results section. ESTIMATED GFR Routine 06/27/2017 Results for 5:15 AM MACHINE PRECISION ENGRAVER this procedure are in the results section. MAGNESIUM LEVEL Routine 06/27/2017 Results for 5:15 AM MACHINE PRECISION ENGRAVER this procedure are in the results section. PHOSPHORUS LEVEL Routine 06/27/2017 Results for 5:15 AM MACHINE PRECISION ENGRAVER this procedure are in the results section. HC COMPLETE BLD COUNT W/AUTO Routine 06/27/2017 Results for DIFF 5:15 AM MACHINE PRECISION ENGRAVER this procedure are in the results section. BASIC METABOLIC PANEL Routine 06/27/2017 Results for 5:15 AM MACHINE PRECISION ENGRAVER this procedure are in the results section. SMEAR REVIEW Routine 06/26/2017 Results for 4:00 AM MACHINE PRECISION ENGRAVER this procedure are in the results section. PROTHROMBIN TIME WITH INR Routine 06/26/2017 Results for 4:00 AM MACHINE PRECISION ENGRAVER this procedure are in the results section. ESTIMATED GFR Routine 06/26/2017 Results for 4:00 AM MACHINE PRECISION ENGRAVER this procedure are in the results section. MAGNESIUM LEVEL Routine 06/26/2017 Results for 4:00 AM MACHINE PRECISION ENGRAVER this procedure are in the results section. PHOSPHORUS LEVEL Routine 06/26/2017 Results for 4:00 AM MACHINE PRECISION ENGRAVER this procedure are in the results section. HC COMPLETE BLD COUNT W/AUTO Routine 06/26/2017 Results for DIFF 4:00 AM MACHINE PRECISION ENGRAVER this procedure are in the results section. BASIC METABOLIC PANEL Routine 06/26/2017 Results for 4:00 AM MACHINE PRECISION ENGRAVER this procedure are in the results section. ESOPHAGOGASTRODUODENOSCOPY 06/25/2017 Portal (EGD) 8:00 AM MACHINE PRECISION ENGRAVER hypertension SMEAR REVIEW Routine 06/25/2017 Results for 5:01 AM MACHINE PRECISION ENGRAVER this procedure are in the results section. ESTIMATED GFR Routine 06/25/2017 Results for 5:01 AM MACHINE PRECISION ENGRAVER this procedure are in the results section. HEMOCHROMATOSIS (HFE) 3 Routine 06/25/2017 Results for MUTATIONS 5:01 AM MACHINE PRECISION ENGRAVER this procedure are in the results section. PROTHROMBIN TIME WITH INR Routine 06/25/2017 Results for 5:01 AM MACHINE PRECISION ENGRAVER this procedure are in the results section. PHOSPHORUS LEVEL Routine 06/25/2017 Results for 5:01 AM MACHINE PRECISION ENGRAVER this procedure are in the results section. MAGNESIUM LEVEL Routine 06/25/2017 Results for 5:01 AM MACHINE PRECISION ENGRAVER this procedure are in the results section. HEPATIC FUNCTION PANEL Routine 06/25/2017 Results for 5:01 AM MACHINE PRECISION ENGRAVER this procedure are in the results section. BASIC METABOLIC PANEL Routine 06/25/2017 Results for 5:01 AM MACHINE PRECISION ENGRAVER this procedure are in the results section. HC COMPLETE BLD COUNT W/AUTO Routine 06/25/2017 Results for DIFF 5:01 AM MACHINE PRECISION ENGRAVER this procedure are in the results section. SMEAR REVIEW Routine 06/24/2017 Results for 12:55 PM MACHINE PRECISION ENGRAVER this procedure are in the results section. HEMOGLOBIN & HEMATOCRIT Routine 06/24/2017 Results for 12:55 PM MACHINE PRECISION ENGRAVER this procedure are in the results section. US DUPLEX VENOUS LOWER Routine 06/24/2017 Results for EXTREMITY BILATERAL 10:43 AM MACHINE PRECISION ENGRAVER this procedure are in the results section. ECHOCARDIOGRAM 2D COMPLETE W Routine 06/24/2017 Results for MMODE SPECTRAL COLOR DOPPLER 9:39 AM MACHINE PRECISION ENGRAVER this procedure ([id number]) are in the results section. SMEAR REVIEW Routine 06/24/2017 Results for 5:32 AM MACHINE PRECISION ENGRAVER this procedure are in the results section. ESTIMATED GFR Routine 06/24/2017 Results for 5:32 AM MACHINE PRECISION ENGRAVER this procedure are in the results section. THYROID PEROXIDASE ANTIBODY Routine 06/24/2017 Results for 5:32 AM MACHINE PRECISION ENGRAVER this procedure are in the results section. RETICULOCYTE COUNT Routine 06/24/2017 Results for 5:32 AM MACHINE PRECISION ENGRAVER this procedure are in the results section. TOTAL IRON BINDING CAPACITY Routine 06/24/2017 Results for 5:32 AM MACHINE PRECISION ENGRAVER this procedure are in the results section. VITAMIN B12 LEVEL Routine 06/24/2017 Results for 5:32 AM MACHINE PRECISION ENGRAVER this procedure are in the results section. LDH Routine 06/24/2017 Results for 5:32 AM MACHINE PRECISION ENGRAVER this procedure are in the results section. FOLATE LEVEL Routine 06/24/2017 Results for 5:32 AM MACHINE PRECISION ENGRAVER this procedure are in the results section. FERRITIN LEVEL Routine 06/24/2017 Results for 5:32 AM MACHINE PRECISION ENGRAVER this procedure are in the results section. B NATRIURETIC PEPTIDE Routine 06/24/2017 Results for 5:32 AM MACHINE PRECISION ENGRAVER this procedure are in the results section. PROTHROMBIN TIME WITH INR Routine 06/24/2017 Results for 5:32 AM MACHINE PRECISION ENGRAVER this procedure are in the results section. PHOSPHORUS LEVEL Routine 06/24/2017 Results for 5:32 AM MACHINE PRECISION ENGRAVER this procedure are in the results section. MAGNESIUM LEVEL Routine 06/24/2017 Results for 5:32 AM MACHINE PRECISION ENGRAVER this procedure are in the results section. HEPATIC FUNCTION PANEL Routine 06/24/2017 Results for 5:32 AM MACHINE PRECISION ENGRAVER this procedure are in the results section. BASIC METABOLIC PANEL Routine 06/24/2017 Results for 5:32 AM MACHINE PRECISION ENGRAVER this procedure are in the results section. HC COMPLETE BLD COUNT W/AUTO Routine 06/24/2017 Results for DIFF 5:32 AM MACHINE PRECISION ENGRAVER this procedure are in the results section. WANG Routine 06/24/2017 Results for 4:00 AM MACHINE PRECISION ENGRAVER this procedure are in the results section. HEMOGLOBIN & HEMATOCRIT Routine 06/23/2017 Results for 12:30 PM MACHINE PRECISION ENGRAVER this procedure are in the results section. XR CHEST 1 VW Routine 06/23/2017 Results for 11:43 AM MACHINE PRECISION ENGRAVER this procedure are in the results section. XR ABDOMEN 1 VW Routine 06/23/2017 Results for 11:42 AM MACHINE PRECISION ENGRAVER this procedure are in the results section. US LIMITED Routine 06/23/2017 Results for 11:31 AM MACHINE PRECISION ENGRAVER this procedure are in the results section. ESTIMATED GFR Routine 06/23/2017 Results for 5:11 AM MACHINE PRECISION ENGRAVER this procedure are in the results section. ALPHA FETOPROTEIN Routine 06/23/2017 Results for 5:11 AM MACHINE PRECISION ENGRAVER this procedure are in the results section. B NATRIURETIC PEPTIDE Routine 06/23/2017 Results for 5:11 AM MACHINE PRECISION ENGRAVER this procedure are in the results section. T4 Routine 06/23/2017 Results for 5:11 AM MACHINE PRECISION ENGRAVER this procedure are in the results section. THYROID STIMULATING HORMONE Routine 06/23/2017 Results for 5:11 AM MACHINE PRECISION ENGRAVER this procedure are in the results section. HEMOGLOBIN A1C Routine 06/23/2017 Results for 5:11 AM MACHINE PRECISION ENGRAVER this procedure are in the results section. PROTHROMBIN TIME WITH INR Routine 06/23/2017 Results for 5:11 AM MACHINE PRECISION ENGRAVER this procedure are in the results section. PHOSPHORUS LEVEL Routine 06/23/2017 Results for 5:11 AM MACHINE PRECISION ENGRAVER this procedure are in the results section. MAGNESIUM LEVEL Routine 06/23/2017 Results for 5:11 AM MACHINE PRECISION ENGRAVER this procedure are in the results section. HEPATIC FUNCTION PANEL Routine 06/23/2017 Results for 5:11 AM MACHINE PRECISION ENGRAVER this procedure are in the results section. BASIC METABOLIC PANEL Routine 06/23/2017 Results for 5:11 AM MACHINE PRECISION ENGRAVER this procedure are in the results section. HC COMPLETE BLD COUNT W/AUTO Routine 06/23/2017 Results for DIFF 5:11 AM MACHINE PRECISION ENGRAVER this procedure are in the results section. URINALYSIS, AUTOMATED WITH Routine 06/23/2017 Results for MICROSCOPY 5:00 AM MACHINE PRECISION ENGRAVER this procedure are in the results section. BILIRUBIN DIRECT Routine 06/22/2017 Results for 11:43 PM MACHINE PRECISION ENGRAVER this procedure are in the results section. ALT (SGPT) Routine 06/22/2017 Results for 11:43 PM MACHINE PRECISION ENGRAVER this procedure are in the results section. POTASSIUM LEVEL Routine 06/22/2017 Results for 11:43 PM MACHINE PRECISION ENGRAVER this procedure are in the results section. AST (SGOT) Routine 06/22/2017 Results for 11:43 PM MACHINE PRECISION ENGRAVER this procedure are in the results section. PREPARE RBC Timed 06/22/2017 Results for 9:51 PM MACHINE PRECISION ENGRAVER this procedure are in the results section. ESTIMATED GFR Routine 06/22/2017 Results for 9:51 PM MACHINE PRECISION ENGRAVER this procedure are in the results section. TYPE AND SCREEN Routine 06/22/2017 Results for 9:51 PM MACHINE PRECISION ENGRAVER this procedure are in the results section. PROTHROMBIN TIME WITH INR Routine 06/22/2017 Results for 9:51 PM MACHINE PRECISION ENGRAVER this procedure are in the results section. PHOSPHORUS LEVEL Routine 06/22/2017 Results for 9:51 PM MACHINE PRECISION ENGRAVER this procedure are in the results section. MAGNESIUM LEVEL Routine 06/22/2017 Results for 9:51 PM MACHINE PRECISION ENGRAVER this procedure are in the results section. HEPATIC FUNCTION PANEL Routine 06/22/2017 Results for 9:51 PM MACHINE PRECISION ENGRAVER this procedure are in the results section. HC COMPLETE BLD COUNT W/AUTO Routine 06/22/2017 Results for DIFF 9:51 PM MACHINE PRECISION ENGRAVER this procedure are in the results section. AMMONIA LEVEL Routine 06/22/2017 Results for 9:51 PM MACHINE PRECISION ENGRAVER this procedure are in the results section. BASIC METABOLIC PANEL Routine 06/22/2017 Results for 9:51 PM MACHINE PRECISION ENGRAVER this procedure are in the results section. ECG 12-LEAD Routine 06/22/2017 Results for 8:53 PM MACHINE PRECISION ENGRAVER this procedure are in the results section. after 01/10/2017 Results Smear review (12/08/2017 5:07 AM)Only the most recent of10 resultswithin the time period is included. Platelet slide review Mkd decreased (A) [facility] DEPARTMENT OF PATHOLOGY AND GENOMIC MEDICINE Anisocytosis Moderate [facility] DEPARTMENT OF PATHOLOGY AND GENOMIC MEDICINE Basophilic stippling Occasional [facility] DEPARTMENT OF PATHOLOGY AND GENOMIC MEDICINE Performing Organization Address City/[facility] Phone Number [facility] DEPARTMENT OF PATHOLOGY AND [address] [place] [address] [facility] Estimated GFR (12/08/2017 5:07 AM)Only the most recent of16 resultswithin the time period is included. GFR Non Af Amer 35 (A) mL/min/1.73 m2 [facility] DEPARTMENT OF PATHOLOGY AND GENOMIC MEDICINE GFR Af Amer 42 (A) mL/min/1.73 m2 [facility] DEPARTMENT OF Comment: PATHOLOGY AND GENOMIC Chronic kidney disease: <60 mL/min/1.73m2 MEDICINE Kidney failure: <15 mL/min/1.73m2 The estimated GFR is calculated from the IDMS-traceable Modification of Diet in Renal Disease Equation. The accuracy of the calculation is poor when the creatinine is normal. Calculated values >90 mL/min/1.73m2 are not reported. This equation has not been validated in children (<18 years), women, the elderly (>70 years), or ethnic groups other than Caucasians and Americans. Specimen Plasma specimen Performing Organization Address City/State/Zipcode Phone Number [facility] DEPARTMENT OF PATHOLOGY AND [address] [place] [address] [facility] Prothrombin time with INR (12/08/2017 5:07 AM)Only the most recent of15 resultswithin the time period is included. Prothrombin time 19.1 (H) 12.0 - 15.0 sec [facility] DEPARTMENT OF PATHOLOGY AND GENOMIC MEDICINE INR 1.6 [facility] DEPARTMENT OF Comment: PATHOLOGY AND GENOMIC The International Normalized Ratio (INR) is a therapeutic MEDICINE monitoring tool for patients who are stable on oral anticoagulant therapy. An INR of 2.0-3.0 is suggested for deep vein thrombosis/pulmonary embolism. Specimen Blood Performing Organization Address City/[facility] Phone Number [facility] PATHOLOGY AND [address] [place] [phone] [facility] Reticulocyte count (12/08/2017 5:07 AM)Only the most recent of5 resultswithin the time period is included. Retic %, auto 3.2 (H) 0.5 - 2.1 % [facility] DEPARTMENT OF PATHOLOGY AND GENOMIC MEDICINE Retic absolute, auto 0.0849 0.0210 - 0.1155 m/uL [facility] OF PATHOLOGY [facility] GENOMIC MEDICINE Performing Organization Address City/[facility] Phone Number [facility] PATHOLOGY [address] [address] [facility] CBC with platelet and differential (12/08/2017 5:07 AM)Only the most recent of16 resultswithin the time period is included. WBC 3.76 (L) 4.50 - 11.00 k/uL [facility] DEPARTMENT OF PATHOLOGY AND GENOMIC MEDICINE RBC 2.63 (L) 4.20 - 5.50 m/uL [facility] DEPARTMENT OF PATHOLOGY AND GENOMIC MEDICINE HGB 8.4 (L) 12.0 - 16.0 g/dL [facility] DEPARTMENT OF PATHOLOGY AND GENOMIC MEDICINE HCT 24.9 (L) 37.0 - 47.0 % [facility] DEPARTMENT OF PATHOLOGY AND GENOMIC MEDICINE MCV 94.7 82.0 - 100.0 fL [facility] DEPARTMENT OF PATHOLOGY AND GENOMIC MEDICINE MCH 31.9 27.0 - 34.0 pg [facility] DEPARTMENT OF PATHOLOGY AND GENOMIC MEDICINE MCHC 33.7 31.0 - 37.0 g/dL [facility] DEPARTMENT OF PATHOLOGY AND GENOMIC MEDICINE RDW - SD 47.8 37.0 - 55.0 fL [facility] DEPARTMENT OF PATHOLOGY AND GENOMIC MEDICINE MPV 10.5 8.8 - 13.2 fL [facility] DEPARTMENT OF PATHOLOGY AND GENOMIC MEDICINE Platelet count 46 (L) 150 - 400 k/uL [facility] DEPARTMENT OF PATHOLOGY AND GENOMIC MEDICINE Nucleated RBC 0.00 /100 WBC [facility] DEPARTMENT OF PATHOLOGY AND GENOMIC MEDICINE Neutrophils 50.8 39.0 - 69.0 % [facility] DEPARTMENT OF PATHOLOGY AND GENOMIC MEDICINE Lymphocytes 33.0 25.0 - 45.0 % [facility] DEPARTMENT OF PATHOLOGY AND GENOMIC MEDICINE Monocytes 12.0 (H) 0.0 - 10.0 % [facility] DEPARTMENT OF PATHOLOGY AND GENOMIC MEDICINE Eosinophils 2.9 0.0 - 5.0 % [facility] DEPARTMENT OF PATHOLOGY AND GENOMIC MEDICINE Basophils 0.5 0.0 - 1.0 % [facility] DEPARTMENT OF PATHOLOGY AND GENOMIC MEDICINE Immature granulocytes 0.8Comment: 0.0 - 1.0 % [facility] DEPARTMENT OF "Immature PATHOLOGY AND GENOMIC granulocytes" MEDICINE (promyelocytes, myelocytes, metamyelocytes) Specimen Blood Performing Organization Address City/[facility] Phone Number [facility] DEPARTMENT OF PATHOLOGY AND [address] [place] [address] Phosphorus level (12/08/2017 5:07 AM)Only the most recent of15 resultswithin the time period is included. Phosphorus 2.8 2.4 - 4.5 mg/dL [facility] DEPARTMENT OF PATHOLOGY AND GENOMIC MEDICINE Specimen Plasma specimen Performing Organization Address [facility] Phone Number [facility] DEPARTMENT OF PATHOLOGY AND [address] [place] [address] Magnesium level (12/08/2017 5:07 AM)Only the most recent of15 resultswithin the time period is included. Magnesium 1.8 1.6 - 2.4 mg/dL [facility] DEPARTMENT OF PATHOLOGY AND GENOMIC MEDICINE Specimen Plasma specimen Performing Organization Address [facility] Phone Number [facility] DEPARTMENT OF PATHOLOGY AND [address] [place] [address] Hepatic function panel (12/08/2017 5:07 AM)Only the most recent of11 resultswithin the time period is included. Albumin 2.2 (L) 3.5 - 5.0 g/dL [facility] DEPARTMENT OF PATHOLOGY AND GENOMIC MEDICINE Total bilirubin 2.0 (H) 0.0 - 1.2 mg/dL [facility] DEPARTMENT OF PATHOLOGY AND GENOMIC MEDICINE Bilirubin direct 0.7 (H) 0.0 - 0.3 mg/dL [facility] DEPARTMENT OF PATHOLOGY AND GENOMIC MEDICINE Alkaline phosphatase 58 35 - 104 U/L [facility] DEPARTMENT OF PATHOLOGY AND GENOMIC MEDICINE Protein 5.2 (L) 6.3 - 8.3 g/dL [facility] DEPARTMENT OF Comment: PATHOLOGY AND GENOMIC 4.6-7.0 g/dL MEDICINE 1 week 4.4-7.6 g/dL 7 months-1year5.1-7.3 g/dL 1-2 years5.6-7.5 g/dL >3 years6.0-8.0 g/dL 18-150 6.3-8.3 g/dL ALT 8 5 - 50 U/L [facility] DEPARTMENT OF PATHOLOGY AND GENOMIC MEDICINE AST 26 10 - 35 U/L [facility] DEPARTMENT OF PATHOLOGY AND GENOMIC MEDICINE Specimen Plasma specimen Performing Organization Address [facility] Phone Number [facility] DEPARTMENT OF PATHOLOGY AND [address] [place] [address] MEDICINE Basic metabolic panel (12/08/2017 5:07 AM)Only the most recent of12 resultswithin the time period is included. Sodium 137 135 - 148 mEq/L [facility] DEPARTMENT OF PATHOLOGY AND GENOMIC MEDICINE Potassium 4.0 3.5 - 5.0 mEq/L [facility] DEPARTMENT OF PATHOLOGY AND GENOMIC MEDICINE Chloride 100 98 - 112 mEq/L [facility] DEPARTMENT OF PATHOLOGY AND GENOMIC MEDICINE CO2 30 24 - 31 mEq/L [facility] DEPARTMENT OF PATHOLOGY AND GENOMIC MEDICINE Anion gap 7@ANIO 7 - 15 mEq/L [facility] DEPARTMENT OF PATHOLOGY AND GENOMIC MEDICINE BUN 28 (H) 8 - 23 mg/dL [facility] DEPARTMENT OF PATHOLOGY AND GENOMIC MEDICINE Creatinine 1.5 (H) 0.5 - 0.9 mg/dL [facility] DEPARTMENT OF PATHOLOGY AND GENOMIC MEDICINE Glucose 120 (H) 65 - 99 mg/dL [facility] DEPARTMENT OF PATHOLOGY AND GENOMIC MEDICINE Calcium 7.7 (L) 8.8 - 10.2 mg/dL [facility] DEPARTMENT OF PATHOLOGY AND GENOMIC MEDICINE Specimen Plasma specimen Performing Organization Address [facility] Phone Number [facility] DEPARTMENT OF PATHOLOGY AND [address] [place] [address] MEDICINE Echocardiogram complete w contrast and 3D if needed (12/07/2017 6:16 PM) Narrative Performed At [facility] Echocardiography Report [address] [place] [address] Pat.Name:SUKHJINDER HOPKINS Pat.ID:[id number] .Date: 12/07/2017 Refer.MD:ROCHELLE FIGUEROA MD Exam Time: 4:40:00 PMStudy Type:Routine Echo Height:61inWeight: 171lb BSA: 1.77 m2 DOBAge:1955,62Y Sex: FEMALEBP:121/57 HR:75 bpmSonogrphr: Rita Valdez RDCS, RVT Pat. Stat.:Inpatient Room:[address] Study Status:Final Echo Event ID:[id number] Order ID:[id number] Reason for Study:Rule out heart failure or pulmonary hypertension History / Clinical:Hyperlipidemia, Hypertension Procedures:2D Echo, Colorflow Doppler, Strain Race:C SUMMARY: LV EF is hyperdynamic. Diastolic dysfunction Grade II (Moderate): Impaired relaxation with elevated LV filling pressures. Suboptimal/insufficient TR jet. Estimated PA systolic pressure is at least 46 mmHg, assuming a mean RAP of 15 mmHg. FINDINGS: LV: LV size is normal. LV EF is hyperdynamic. Overall wall motionis hyperdynamic. Estimated EF is >70%. RV: RV size is normal. RV systolic function is normal. LA: LA volume is severely enlarged. RA: RA size is normal. AO: Aortic root diameter is normal. CHICA: No pericardial effusion. AV: No structural AV abnormalities noted. MV: No structural MV abnormalities noted. Mild mitral regurgitation. PV: No structural PV abnormalities noted. TV: No structural TV abnormalities noted. Mild tricuspid regurgitation Kemp: Diastolic dysfunction Grade II (Moderate): Impaired relaxationwith elevated LV filling pressures. Other:Suboptimal/insufficient TR jet. Estimated PA systolic pressureis at least 46 mmHg, assuming a mean RAP of 15 mmHg. MEASUREMENTS: 2D Parasternal Long Irmo Ao Rtd 2.7 cmIndex1.5 cm/m LVPWd1.2 cm LVIDd5.2 cmIndex3 cm/m LA Ds5 cm LVIDs2.9 cmLV Bafb954.5 g(87-129) LV%fs 44.5 % LVM Mvnha496.6 g/m2 IVSd 1 cmRWT0.4 LA Sng Plane LA Area 31.3 cm2(8.8-23.4) LA Vol 122.6 ml Index69.3 ml/m LA LngAx 6.7 cm RA Sng Plane RA Area 17.3 cm2(8.3-19.5) RA Vol46.6 ml Index26.3 ml/m RA LngAx 5.5 cm Signed 12/08/2017 07:12 PM Bienvenido Nelson M.D. Procedure Note Interface, Radiology Results In - 12/08/2017 7:12 PM CDT Echocardiography Report [address] [place] [address] Pat.Name: SUKHJINDER HOPKINS Pat.ID: [id number] .Date: 12/07/2017 Refer.MD: ROCHELLE FIGUEROA MD Exam Time: 4:40:00 PM Study Type:Routine Echo Height: 61in Weight: 171lb BSA: 1.77 m2 Age: 10 1955,62Y Sex: FEMALE BP: 121/57 HR: 75 bpm Sonogrphr: Rita Valdez RDCS, RVT Pat. Stat.:Inpatient Room: [address] Study Status:Final Echo Event ID:[id number] Order ID: [id number] Reason for Study:Rule out heart failure or pulmonary hypertension History / Clinical:Hyperlipidemia, Hypertension Procedures:2D Echo, Colorflow Doppler, Strain Race: C SUMMARY: LV EF is hyperdynamic. Diastolic dysfunction Grade II (Moderate): Impaired relaxation with elevated LV filling pressures. Suboptimal/insufficient TR jet. Estimated PA systolic pressure is at least 46 mmHg, assuming a mean RAP of 15 mmHg. FINDINGS: LV: LV size is normal. LV EF is hyperdynamic. Overall wall motion is hyperdynamic. Estimated EF is >70%. RV: RV size is normal. RV systolic function is normal. LA: LA volume is severely enlarged. RA: RA size is normal. AO: Aortic root diameter is normal. CHIAC: No pericardial effusion. AV: No structural AV abnormalities noted. MV: No structural MV abnormalities noted. Mild mitral regurgitation. PV: No structural PV abnormalities noted. TV: No structural TV abnormalities noted. Mild tricuspid regurgitation Kemp: Diastolic dysfunction Grade II (Moderate): Impaired relaxation with elevated LV filling pressures. Other: Suboptimal/insufficient TR jet. Estimated PA systolic pressure is at least 46 mmHg, assuming a mean RAP of 15 mmHg. MEASUREMENTS: 2D Parasternal Long Irmo Ao Rtd 2.7 cm Index 1.5 cm/m LVPWd 1.2 cm LVIDd 5.2 cm Index 3 cm/m LA Ds 5 cm LVIDs 2.9 cm LV Mass 220.5 g (87-129) LV%fs 44.5 % LVM Index 124.6 g/m2 IVSd 1 cm RWT 0.4 LA Sng Plane LA Area 31.3 cm2 (8.8-23.4) LA Vol 122.6 ml Index 69.3 ml/m LA LngAx 6.7 cm RA Sng Plane RA Area 17.3 cm2 (8.3-19.5) RA Vol 46.6 ml Index 26.3 ml/m RA LngAx 5.5 cm Signed 12/08/2017 07:12 PM Bienvenido Nelson M.D. Performing Organization Address [facility] Phone Number [facility] [address] [place] [address] US Abdominal Paracentesis Imaging (12/07/2017 12:50 PM) Narrative Performed At EXAMINATION:US ABDOMINAL PARACENTESIS IMAGING [facility] CLINICAL HISTORY:Ascites COMPARISON:None. TECHNIQUE: The procedure's risks, benefits, and alternatives were discussed with the patient and written, informed consent was obtained. Using ultrasound guidance, a site for needle entry was selected and the overlying skin was prepped and draped in the usual sterile fashion. 1% buffered lidocaine was used for local anesthesia. A 5 [place] Yueh catheter was inserted into the peritoneal cavity and 2 L of fluid drained from the right abdomen for therapeutic and diagnostic purposes.The patient tolerated the procedure without difficulty and was discharged to the radiology recovery area for monitoring prior to discharge. EBL: None. COMPLICATIONS: None. SPECIMENS: As above. ASSISTANTS: None. IMPRESSION: Uncomplicated ultrasound-guided paracentesis as above. [facility]-[id number] Procedure Note Interface, Radiology Results Incoming - 12/07/2017 2:53 PM CDT EXAMINATION: US ABDOMINAL PARACENTESIS IMAGING CLINICAL HISTORY:Ascites COMPARISON:None. TECHNIQUE: The procedure's risks, benefits, and alternatives were discussed with the patient and written, informed consent was obtained. Using ultrasound guidance, a site for needle entry was selected and the overlying skin was prepped and draped in the usual sterile fashion. 1% buffered lidocaine was used for local anesthesia. A 5 [place] Yueh catheter was inserted into the peritoneal cavity and 2 L of fluid drained from the right abdomen for therapeutic and diagnostic purposes. The patient tolerated the procedure without difficulty and was discharged to the radiology recovery area for monitoring prior to discharge. EBL: None. COMPLICATIONS: None. SPECIMENS: As above. ASSISTANTS: None. IMPRESSION: Uncomplicated ultrasound-guided paracentesis as above. [facility]-[id number] Performing Organization Address [facility] Phone Number [facility] [address] [place] [address] Aerobic culture (12/07/2017 11:51 AM) Aerobic culture isolate No growth after 3 days. [facility] DEPARTMENT OF Comment: PATHOLOGY AND GENOMIC Specimen Information MEDICINE Specimen Source: Peritoneal fluid Specimen Site: Ascites Specimen Peritoneal fluid - Ascites Performing Organization Address City/[facility] Phone Number [facility] DEPARTMENT OF PATHOLOGY AND [address] [place] [phone] GENOMIC MEDICINE Gram stain (12/07/2017 11:51 AM) Gram stain isolate Few WBC's [facility] DEPARTMENT OF PATHOLOGY No organisms seen AND GENOMIC MEDICINE Comment: Specimen Information Specimen Source: Peritoneal fluid Specimen Site: Ascites Specimen Peritoneal fluid - Ascites Performing Organization Address [facility] Phone Number [facility] DEPARTMENT OF PATHOLOGY AND [address] [place] [phone] GENOMIC MEDICINE Anaerobic culture (12/07/2017 11:51 AM) Anaerobic culture No anaerobic organisms isolated. [facility] DEPARTMENT OF isolate Comment: PATHOLOGY AND GENOMIC Specimen Information MEDICINE Specimen Source: Peritoneal fluid Specimen Site: Ascites Specimen Peritoneal fluid - Ascites Performing Organization Address [facility] Phone Number [facility] DEPARTMENT OF PATHOLOGY AND [address] [place] [phone] GENOMIC MEDICINE Cell count and differential, body fluid (12/07/2017 11:51 AM) [facility] [place] type Ascitic [facility] DEPARTMENT OF PATHOLOGY AND GENOMIC MEDICINE Color, fluid Yellow [facility] DEPARTMENT OF PATHOLOGY AND GENOMIC MEDICINE Appearance, fluid Slightly hazy [facility] DEPARTMENT OF PATHOLOGY AND GENOMIC MEDICINE RBC, fluid SEE COMMENTComment: 2+ /CMM [facility] DEPARTMENT OF (500 - 10,000 RBC/CMM) PATHOLOGY AND GENOMIC MEDICINE Nucleated cells, fluid 166 /CMM [facility] DEPARTMENT OF PATHOLOGY AND GENOMIC MEDICINE Fluid mononuclear cell See Diff [facility] DEPARTMENT OF PATHOLOGY AND GENOMIC MEDICINE Neutrophils, fluid 5 % [facility] DEPARTMENT OF PATHOLOGY AND GENOMIC MEDICINE Lymphocytes, fluid 14 % [facility] DEPARTMENT OF PATHOLOGY AND GENOMIC MEDICINE Mesothelial cells, fluid 5 % [facility] DEPARTMENT OF PATHOLOGY AND GENOMIC MEDICINE Macrophages, fluid 76 % [facility] DEPARTMENT OF PATHOLOGY AND GENOMIC MEDICINE Specimen Fluid Performing Organization Address [facility] Phone Number [facility] DEPARTMENT OF PATHOLOGY AND [address] [place] [phone] GENOMIC MEDICINE Protein, misc fluid (12/07/2017 11:51 AM) Fluid type Ascitic [facility] DEPARTMENT OF PATHOLOGY AND GENOMIC MEDICINE Protein, fluid 2.1 g/dL [facility] DEPARTMENT OF PATHOLOGY Comment: AND GENOMIC MEDICINE Analysis performed on Oksana 8000 analyzer. This is not an approved methodology for this specimen type;accuracy and clinical significance uncertain. Specimen Fluid Performing Organization Address City/State/Zipcode Phone Number [facility] DEPARTMENT OF PATHOLOGY AND [address] [place] [address] GENOMIC MEDICINE Transfuse platelets (12/07/2017 11:33 AM)Only the most recent of2 resultswithin the time period is included.US Abdomen Complete (12/06/2017 11:47 AM)Only the most recent of2 resultswithin the time period is included. Narrative Performed At EXAM: US ABDOMEN COMPLETE [facility] CLINICAL DATA:CIRRHOSIS, evaluate for AscitesHCC screening COMPARISON: Abdominal ultrasound 06/29/2017 FINDINGS: LIVER:Diffusely cirrhotic. A 12 mm cyst in the inferior right hepatic lobe is again noted. No liver mass is visualized. MPV:Doppler evaluation of the portal vein demonstrates normal hepatopetal flow. GALLBLADDER:There are gallstones in the gallbladder. CBD: 6 mm diameter, within normal limits. PANCREAS:Not seen SPLEEN:The spleen is enlarged, measuring 15 x 4.5 x 7.3 cm. RIGHT KIDNEY:10 cm length.The right kidney is normal in size and echogenicity. There is no evidence of mass, calculi, or hydronephrosis. LEFT KIDNEY:11 cm length.The left kidney is normal in size and echogenicity. There is no evidence of mass, calculi, or hydronephrosis. AORTA:The visualized upper abdominal aorta demonstrates no evidence of ectasia or aneurysm. IVC:The visualized portions of the inferior vena cava are unremarkable. There is moderate ascites. IMPRESSION: Cirrhosis, splenomegaly, and ascites. No sonographic evidence of HCC. Cholelithiasis. [id number] Procedure Note Interface, Radiology Results Incoming - 12/06/2017 12:01 PM CDT EXAM: US ABDOMEN COMPLETE CLINICAL DATA: CIRRHOSIS, evaluate for Ascites HCC screening COMPARISON: Abdominal ultrasound 06/29/2017 FINDINGS: LIVER: Diffusely cirrhotic. A 12 mm cyst in the inferior right hepatic lobe is again noted. No liver mass is visualized. MPV: Doppler evaluation of the portal vein demonstrates normal hepatopetal flow. GALLBLADDER: There are gallstones in the gallbladder. CBD: 6 mm diameter, within normal limits. PANCREAS: Not seen SPLEEN: The spleen is enlarged, measuring 15 x 4.5 x 7.3 cm. RIGHT KIDNEY: 10 cm length. The right kidney is normal in size and echogenicity. There is no evidence of mass, calculi, or hydronephrosis. LEFT KIDNEY: 11 cm length. The left kidney is normal in size and echogenicity. There is no evidence of mass, calculi, or hydronephrosis. AORTA: The visualized upper abdominal aorta demonstrates no evidence of ectasia or aneurysm. IVC: The visualized portions of the inferior vena cava are unremarkable. There is moderate ascites. IMPRESSION: Cirrhosis, splenomegaly, and ascites. No sonographic evidence of HCC. Cholelithiasis. [id number] Performing Organization Address [facility] Phone Number [facility] [address] [place] [address] Total iron binding capacity (12/06/2017 6:29 AM)Only the most recent of2 resultswithin the time period is included. Iron level 156 (H) 37 - 145 ug/dL [facility] DEPARTMENT OF PATHOLOGY AND GENOMIC MEDICINE Iron binding capacity 173 (L) 200 - 400 ug/dL [facility] DEPARTMENT OF PATHOLOGY AND GENOMIC MEDICINE % Saturation 90.2 (H) 15.0 - 38.0 % [facility] DEPARTMENT OF PATHOLOGY AND GENOMIC [facility] Specimen Plasma specimen Performing Organization Address [facility] Phone Number [facility] DEPARTMENT OF PATHOLOGY AND [address] [place] [address] [facility] Vitamin B1 level, whole blood (12/06/2017 6:29 AM) Vitamin B1 26 (L) 70 - 180 nmol/L [facility] Comment: INTERPRETIVE INFORMATION: Vitamin B1, Whole Blood This assay measures the concentration of thiamine diphosphate (TDP), the primary active form of vitamin B1. Approximately 90 percent of vitamin B1 present in whole blood is TDP. Thiamine and thiamine monophosphate, which comprise the remaining 10 percent, are not measured. Test developed and characteristics determined by [facility]. See Compliance Statement B: [employer]/CS Performed by [facility], [address] [place] [address] [email or web address], Myke Lorenzo MD - Lab. Director Specimen Plasma specimen Performing Organization Address [facility] Phone Number [employer] [address] [place] [address] Vitamin D 25 hydroxy level (12/06/2017 6:29 AM) Vitamin D, 25-hydroxy 12.1 (L) 30.0 - 150.0 [facility] DEPARTMENT OF Comment: ng/mL PATHOLOGY AND GENOMIC This assay reports the sum of 25-hydroxy vitamin D3 and 25-hydroxy vitamin MEDICINE D2. Reference range: 0-17 years: Deficiency: less than 20ng/mL Optimum level: greater than or equal to 20 ng/mL. 18 years and older: Deficiency: less than 20ng/mL Insufficiency: 20-29 ng/mL Optimum Level: 30-80 ng/mL The assay reportable range is 3.4155.9 ng/mL. Levels higher than 150 ng/mL may be associated with toxicity. If toxicity is clinically suspected and the reported result is >155.9 ng/mL,contact lab for alternative methods to obtain a definitivelevel. If separate quantitation of 25-hydroxy vitamin D3 and 25-hydroxy vitamin D2 is needed, please contact lab for alternative methods. Specimen Blood Performing Organization Address [facility] Phone Number [facility] DEPARTMENT OF PATHOLOGY AND [address] [place] [address] B natriuretic peptide (12/06/2017 6:29 AM)Only the most recent of7 resultswithin the time period is included. BNP 97 0 - 100 pg/mL [facility] DEPARTMENT OF PATHOLOGY AND GENOMIC MEDICINE Specimen Blood Performing Organization Address [facility] Phone Number [facility] DEPARTMENT OF PATHOLOGY AND [address] [place] [address] LDH (12/06/2017 6:29 AM)Only the most recent of4 resultswithin the time period is included. LDH 191 87 - 225 U/L [facility] DEPARTMENT OF PATHOLOGY AND GENOMIC MEDICINE Specimen Plasma specimen Performing Organization Address [facility] Phone Number [facility] DEPARTMENT OF PATHOLOGY AND [address] [place] [address] [employer] [facility] Folate level (12/06/2017 6:29 AM)Only the most recent of2 resultswithin the time period is included. Folate >20.0 4.8 - 24.2 ng/mL [facility] DEPARTMENT OF PATHOLOGY AND GENOMIC MEDICINE Specimen Serum Performing Organization Address [facility] Phone Number [facility] DEPARTMENT OF PATHOLOGY AND [address] [place] [address] Ferritin level (12/06/2017 6:29 AM)Only the most recent of2 resultswithin the time period is included. Ferritin level 242 (H) 13 - 150 ng/mL [facility] DEPARTMENT OF PATHOLOGY AND GENOMIC MEDICINE Specimen Plasma specimen Performing Organization Address City/[facility]/Zipcode Phone Number [facility] DEPARTMENT OF PATHOLOGY AND [address] [place] [address] [facility] Vitamin B12 level (12/06/2017 6:29 AM)Only the most recent of2 resultswithin the time period is included. Vitamin B12 1,637 (H) 211 - 946 pg/mL [facility] DEPARTMENT OF PATHOLOGY Comment: AND GENOMIC MEDICINE Significant overlap exists between normal and deficiency states. However, most patients with deficiencies will have Serum B12 <200 pg/mL. Specimen Serum Performing Organization Address [facility] Phone Number [facility] DEPARTMENT OF PATHOLOGY AND [address] [place], [place] [id number] [facility] XR Panorex (12/05/2017 6:32 PM) Narrative Performed At EXAMINATION: XR PANOREX [facility] CLINICAL HISTORY: Dental Caries COMPARISON:None IMPRESSION: Panorex imaging of the mandible and maxilla was performed. Exam is slightly limited due to streak artifacts. Grossly the mandible is intact. There is no large periportal is identified but evaluation is limited due to the artifacts. Multiple dental metallic fillings are noted in the molar teeth. There is a fracture of one of the right mandibular molars in the first molar which may be chronic. [id number] Procedure Note Interface, Radiology Results Incoming - 12/05/2017 6:44 PM CDT EXAMINATION: XR PANOREX CLINICAL HISTORY: Dental Caries COMPARISON: None IMPRESSION: Panorex imaging of the mandible and maxilla was performed. Exam is slightly limited due to streak artifacts. Grossly the mandible is intact. There is no large periportal is identified but evaluation is limited due to the artifacts. Multiple dental metallic fillings are noted in the molar teeth. There is a fracture of one of the right mandibular molars in the first molar which may be chronic. [id number] Performing Organization Address [facility] Phone Number [facility] [address] [place] [address] ECG 12 lead (12/05/2017 10:55 AM)Only the most recent of3 resultswithin the time period is included. Ventricular rate 88 [facility] MUSE Atrial rate 88 [facility] MUSE [place] interval 106 [facility] MUSE QRSD interval 82 [facility] MUSE QT interval 392 [facility] MUSE QTC interval 474 [facility] MUSE P axis 1 47 [facility] MUSE QRS axis 1 11 [facility] MUSE T wave axis 35 [facility] MUSE EKG impression Sinus rhythm with short [place]-Otherwise normal [facility] MUSE ECG-In automated comparison with ECG of 04-DEC-2017 22:25,-No significant change was found- Performing Organization Address [facility] Phone Number [facility] MUSE [address] [place] [address] Troponin (12/05/2017 8:47 AM) Troponin <0.30 0.00 - 0.30 ng/mL [facility] DEPARTMENT OF PATHOLOGY Comment: AND GENOMIC MEDICINE 0.30 - 1.49 ng/mlMay indicate increased risk of acute coronary syndrome. >=1.5 ng/mlConsistent with acute myocardial infarction. The diagnostic value of a single normal or non-diagnostic result is questionable.Serial samples at 2-6 hour intervals are required to rule out acute myocardial injury. Specimen Plasma specimen Performing Organization Address [facility] Phone Number [facility] DEPARTMENT OF PATHOLOGY AND [address] [place] [address] [facility] Comprehensive metabolic panel (12/05/2017 8:47 AM)Only the most recent of4 resultswithin the time period is included. Sodium 139 135 - 148 mEq/L [facility] DEPARTMENT OF PATHOLOGY AND GENOMIC MEDICINE Potassium 4.8 3.5 - 5.0 mEq/L [facility] DEPARTMENT OF PATHOLOGY AND GENOMIC MEDICINE Chloride 103 98 - 112 mEq/L [facility] DEPARTMENT OF PATHOLOGY AND GENOMIC MEDICINE CO2 26 24 - 31 mEq/L [facility] DEPARTMENT OF PATHOLOGY AND GENOMIC MEDICINE Anion gap 10 7 - 15 mEq/L [facility] DEPARTMENT OF Comment: PATHOLOGY AND GENOMIC Starting from October , anion gap calculation MEDICINE no longer incorporates potassium. Please note the change. BUN 31 (H) 8 - 23 mg/dL [facility] DEPARTMENT OF PATHOLOGY AND GENOMIC MEDICINE Creatinine 1.1 (H) 0.5 - 0.9 mg/dL [facility] DEPARTMENT OF PATHOLOGY AND GENOMIC MEDICINE Glucose 125 (H) 65 - 99 mg/dL [facility] DEPARTMENT OF PATHOLOGY AND GENOMIC MEDICINE Calcium 8.6 (L) 8.8 - 10.2 mg/dL [facility] DEPARTMENT OF PATHOLOGY AND GENOMIC MEDICINE Protein 5.4 (L) 6.3 - 8.3 g/dL [facility] DEPARTMENT OF Comment: PATHOLOGY AND GENOMIC 4.6-7.0 g/dL MEDICINE 1 week 4.4-7.6 g/dL 7 months-1year5.1-7.3 g/dL 1-2 years5.6-7.5 g/dL >3 years6.0-8.0 g/dL 18-150 6.3-8.3 g/dL Albumin 2.5 (L) 3.5 - 5.0 g/dL [facility] DEPARTMENT OF PATHOLOGY AND GENOMIC MEDICINE A/G ratio 0.9 0.7 - 3.8 [facility] DEPARTMENT OF PATHOLOGY AND GENOMIC MEDICINE Alkaline phosphatase 63 35 - 104 U/L [facility] DEPARTMENT OF PATHOLOGY AND GENOMIC MEDICINE AST 27 10 - 35 U/L [facility] DEPARTMENT OF PATHOLOGY AND GENOMIC MEDICINE ALT 8 5 - 50 U/L [facility] DEPARTMENT OF PATHOLOGY AND GENOMIC MEDICINE Total bilirubin 6.9 (H) 0.0 - 1.2 mg/dL [facility] DEPARTMENT OF PATHOLOGY AND GENOMIC MEDICINE Specimen Plasma specimen Performing Organization Address City/State/Zipcode Phone Number [facility] DEPARTMENT OF PATHOLOGY AND [address] [place] [address] [facility] Transfuse RBC (12/05/2017 7:53 AM)Only the most recent of2 resultswithin the time period is included.Urinalysis, automated with microscopy (12/05/2017)Only the most recent of2 resultswithin the time period is included. Color, UA Dark Yellow [facility] DEPARTMENT OF PATHOLOGY AND GENOMIC MEDICINE Appearance, UA Clear [facility] DEPARTMENT OF PATHOLOGY AND GENOMIC MEDICINE Specific gravity, UA 1.020 1.001 - 1.035 [facility] DEPARTMENT OF PATHOLOGY AND GENOMIC MEDICINE pH, UA 5.0 5.0 - 8.5 [facility] DEPARTMENT OF PATHOLOGY AND GENOMIC MEDICINE Protein, UA Negative Negative [facility] DEPARTMENT OF PATHOLOGY AND GENOMIC MEDICINE Glucose, UA Negative Negative [facility] DEPARTMENT OF PATHOLOGY AND GENOMIC MEDICINE Ketones, UA Negative Negative [facility] DEPARTMENT OF PATHOLOGY AND GENOMIC MEDICINE Bilirubin, UA Negative Negative [facility] DEPARTMENT OF PATHOLOGY AND GENOMIC MEDICINE Blood, UA Negative Negative [facility] DEPARTMENT OF PATHOLOGY AND GENOMIC MEDICINE Nitrite, UA Negative Negative [facility] DEPARTMENT OF PATHOLOGY AND GENOMIC MEDICINE Urobilinogen, UA <2.0 <2.0 [facility] DEPARTMENT OF PATHOLOGY AND GENOMIC MEDICINE Leukocyte esterase, UA Negative Negative [facility] DEPARTMENT OF PATHOLOGY AND GENOMIC MEDICINE Epithelial cells, UA 4 /HPF [facility] DEPARTMENT OF PATHOLOGY AND GENOMIC MEDICINE WBC, UA 1 0 - 4 /HPF [facility] DEPARTMENT OF PATHOLOGY AND GENOMIC MEDICINE RBC, UA <1 0 - 5 /HPF [facility] DEPARTMENT OF PATHOLOGY AND GENOMIC MEDICINE Bacteria, UA Few None seen [facility] DEPARTMENT OF PATHOLOGY AND GENOMIC MEDICINE Hyaline casts, UA 1 /LPF [facility] DEPARTMENT OF PATHOLOGY AND GENOMIC MEDICINE Yeast, UA None seen [facility] DEPARTMENT OF PATHOLOGY AND GENOMIC MEDICINE Yeast with pseudohyphae, UA None seen [facility] DEPARTMENT OF PATHOLOGY AND GENOMIC MEDICINE Specimen Urine Performing Organization Address [facility] Phone Number [facility] DEPARTMENT OF PATHOLOGY AND [address] [place] [address] Alpha fetoprotein (12/04/2017 11:37 PM)Only the most recent of2 resultswithin the time period is included. Alpha fetoprotein 2.7 0.0 - 8.3 ng/mL [facility] DEPARTMENT OF Comment: PATHOLOGY AND GENOMIC The Oksana 8000 AFP immunoassay was used. MEDICINE Results obtained with different assay methods or kits should not be used interchangeably and may be different. Specimen Serum Performing Organization Address [facility] Phone Number [facility] DEPARTMENT OF PATHOLOGY AND [address] [place] [address] Thyroid stimulating hormone (12/04/2017 11:37 PM)Only the most recent of2 resultswithin the time period is included. TSH 2.84 0.27 - 4.20 uIU/mL [facility] DEPARTMENT OF PATHOLOGY AND GENOMIC MEDICINE Specimen Plasma specimen Performing Organization Address [facility] Phone Number [facility] DEPARTMENT OF PATHOLOGY AND [address] [place] [address] T4 (12/04/2017 11:37 PM)Only the most recent of2 resultswithin the time period is included. T4 6.2 4.5 - 11.7 ug/dL [facility] DEPARTMENT OF PATHOLOGY AND GENOMIC MEDICINE Specimen Plasma specimen Performing Organization Address [facility] Phone Number [facility] DEPARTMENT OF PATHOLOGY AND [address] [place] [address] Lipid panel (12/04/2017 11:37 PM) Cholesterol 182 <200 mg/dL [facility] DEPARTMENT OF PATHOLOGY AND GENOMIC MEDICINE Triglycerides 70 <150 mg/dL [facility] DEPARTMENT OF PATHOLOGY AND GENOMIC MEDICINE HDL cholesterol 48 >40 mg/dL [facility] DEPARTMENT OF PATHOLOGY AND GENOMIC MEDICINE LDL cholesterol 128 (H)Comment: Result <100 mg/dL [facility] DEPARTMENT OF obtained by direct LDL PATHOLOGY AND GENOMIC measurement MEDICINE Lipid panel interpretation SeeBelow [facility] DEPARTMENT OF Comment: PATHOLOGY AND GENOMIC Total Cholesterol (mg/dL) MEDICINE <200 Desirable 642-901Fmniuvnxcg-pala >=240High Triglycerides (mg/dL) <150 Normal 523-122Dizyhmtdjc-tqet 200-499High >=500Very high HDL Cholesterol (mg/dL) <40Low (male) <40Low (female) LDL Cholesterol (mg/dL) <100 Optimal 100-129Near or above optimal 038-391Jgbicdaeiu-bmqn 160-189High >=190Very high Risk Catergories that modify LDL goals. Risk CatergoriesLDL goal (mg/dL) CHD and CHD risk equivalent<100 (10-year risk >20%) Multiple (2+) risk factors <130 (10-year risk=<20%) 0-1 risk factors <160 (<10-year risk) Defining levels of lipids in metabolic syndrome Triglycerides>=150 mg/dL HDL Cholesterol Men<40 mg/dL Women<40 mg/dL Non-HDL cholesterol is a second target for therapy in persons with high triglycerides (>=200 mg/dL) Specimen Plasma specimen Performing Organization Address City/State/Zipcode Phone Number [facility] DEPARTMENT OF PATHOLOGY [address] [address] [employer] [facility] Prepare platelet pheresis, 1 Units (12/04/2017 11:18 PM) Product name Apheresis Platelet ACDA [facility] DEPARTMENT OF LRIRR #1 PATHOLOGY AND GENOMIC MEDICINE Unit number [id number] [facility] DEPARTMENT OF PATHOLOGY AND GENOMIC MEDICINE Product code [id number] [facility] DEPARTMENT OF PATHOLOGY AND GENOMIC MEDICINE Dispense status Transfused [facility] DEPARTMENT OF PATHOLOGY AND GENOMIC MEDICINE Blood expiration date [id number] [facility] DEPARTMENT OF PATHOLOGY AND GENOMIC MEDICINE Blood type code 5100 [facility] DEPARTMENT OF PATHOLOGY AND GENOMIC MEDICINE Blood type O POSITIVE [facility] DEPARTMENT OF PATHOLOGY AND GENOMIC MEDICINE Performing Organization Address City/State/Zipcode Phone Number [facility] DEPARTMENT OF PATHOLOGY AND [address] [place] [phone] GENOMIC MEDICINE Prepare RBC, 1 Units (12/04/2017 11:18 PM)Only the most recent of4 resultswithin the time period is included. Product name Red Blood Cells -1, [facility] DEPARTMENT OF Leukored PATHOLOGY AND GENOMIC MEDICINE Unit number [id number] [facility] DEPARTMENT OF PATHOLOGY AND GENOMIC MEDICINE Product code [id number] [facility] DEPARTMENT OF PATHOLOGY AND GENOMIC MEDICINE Dispense status Returned to BB not [facility] DEPARTMENT OF transfused PATHOLOGY AND GENOMIC MEDICINE Blood expiration date [facility] DEPARTMENT OF PATHOLOGY AND GENOMIC MEDICINE Blood type code 6200 [facility] DEPARTMENT OF PATHOLOGY AND GENOMIC MEDICINE Blood type A POSITIVE [facility] DEPARTMENT OF PATHOLOGY AND GENOMIC MEDICINE Product name Red Cells AS1 Leukored Irrad [facility] DEPARTMENT OF PATHOLOGY AND GENOMIC MEDICINE Unit number [id number] [facility] DEPARTMENT OF PATHOLOGY AND GENOMIC MEDICINE Product code [id number] [facility] DEPARTMENT OF PATHOLOGY AND GENOMIC MEDICINE Dispense status Transfused [facility] DEPARTMENT OF PATHOLOGY AND GENOMIC MEDICINE Blood expiration date [facility] DEPARTMENT OF PATHOLOGY AND GENOMIC MEDICINE Blood type code 6200 [facility] DEPARTMENT OF PATHOLOGY AND GENOMIC MEDICINE Blood type A POSITIVE [facility] DEPARTMENT OF PATHOLOGY AND GENOMIC MEDICINE Performing Organization Address [facility] Phone Number [facility] DEPARTMENT OF PATHOLOGY AND [address] [place], [place] [phone] GENOMIC MEDICINE Type and screen (12/04/2017 11:18 PM)Only the most recent of3 resultswithin the time period is included. ABO grouping A [facility] DEPARTMENT OF PATHOLOGY AND GENOMIC MEDICINE Rh type POS [facility] DEPARTMENT OF PATHOLOGY AND GENOMIC MEDICINE Antibody screen (gel) NEG [facility] DEPARTMENT OF PATHOLOGY AND GENOMIC MEDICINE Specimen Blood Performing Organization Address City/[facility]/Zipcode Phone Number [facility] DEPARTMENT OF PATHOLOGY AND [address] [place] [address] GENOMIC MEDICINE Hemoglobin A1c (12/04/2017 11:18 PM)Only the most recent of2 resultswithin the time period is included. Hemoglobin A1C 4.0 4.0 - 5.6 % [facility] DEPARTMENT OF PATHOLOGY Comment: AND GENOMIC MEDICINE HbA1c cutoffs for diagnosing diabetes: 4.0% - 5.6%=normal 5.7% - 6.4%=increased risk for diabetes (prediabetes) >=6.5%=diabetes Goals for glycemic control (ADA 2016) < 7.0%Target for non adults with diabetes. More or less stringent targets may be appropriate for individual patients. <7.5% Target for Children and adolescents with type 1 diabetes. Specimen Blood Performing Organization Address City/[facility]/Zipcode Phone Number [facility] DEPARTMENT OF PATHOLOGY AND [address] [place] [address] [facility] Ammonia level (12/04/2017 11:18 PM)Only the most recent of3 resultswithin the time period is included. Ammonia 42 11 - 51 umol/L [facility] DEPARTMENT OF PATHOLOGY AND GENOMIC MEDICINE Specimen Blood Performing Organization Address [facility] Phone Number [facility] DEPARTMENT OF PATHOLOGY AND [address] [place], [place] [phone] [facility] XR Chest 1 Vw Portable (12/04/2017 11:12 PM) Narrative Performed At EXAMINATION:XR CHEST 1 VW PORTABLE [facility] CLINICAL HISTORY:SHORTNESS OF BREATH COMPARISON:Chest x-ray dated June 23, 2017 IMPRESSION: There is stable cardiomegaly. Interstitial markings are upper normal. There is no gross consolidation, effusion or pneumothorax. Osseous structures are stable. No acute cardiac pulmonary decompensation identified. [facility]-[id number] Procedure Note Hm Interface, Radiology Results Incoming - 12/04/2017 11:55 PM CDT EXAMINATION: XR CHEST 1 VW PORTABLE CLINICAL HISTORY: SHORTNESS OF BREATH COMPARISON: Chest x-ray dated June 23, 2017 IMPRESSION: There is stable cardiomegaly. Interstitial markings are upper normal. There is no gross consolidation, effusion or pneumothorax. Osseous structures are stable. No acute cardiac pulmonary decompensation identified. [facility]-[id number] Performing Organization Address [facility] Phone Number [facility] [address] [place] [address] XR Abdomen 1 Vw Portable (12/04/2017 11:12 PM) Narrative Performed At Examination:XR ABDOMEN 1 VW PORTABLE [facility] Clinical History: Distention Comparison: None. Findings: Single frontal view of the abdomen is obtained. Moderate fecal material seen throughout the colon. Nonspecific air-filled loops of small bowel are noted but not grossly distended. No free air is seen. IMPRESSION: 1. Nonspecific but nonobstructive bowel gas pattern with air-filled loops of small bowel throughout the abdomen. [facility]-[id number] Procedure Note Hm Interface, Radiology Results Incoming - 12/05/2017 12:08 AM CDT Examination: XR ABDOMEN 1 VW PORTABLE Clinical History: Distention Comparison: None. Findings: Single frontal view of the abdomen is obtained. Moderate fecal material seen throughout the colon. Nonspecific air-filled loops of small bowel are noted but not grossly distended. No free air is seen. IMPRESSION: 1. Nonspecific but nonobstructive bowel gas pattern with air-filled loops of small bowel throughout the abdomen. [facility]-[id number] Performing Organization Address [facility]/Zipcode Phone Number [facility] [address] [place] [address] Partial thromboplastin time, activated (12/04/2017 10:12 PM) PTT 38.3 (H) 23.0 - 36.0 sec [facility] DEPARTMENT OF PATHOLOGY Comment: AND [facility] PTT therapeutic range for unfractionated heparin is 61.0-112.0 seconds which corresponds to Anti-Xa 0.3-0.7 U/ml. Specimen Blood Performing Organization Address [facility] Phone Number [facility] DEPARTMENT OF PATHOLOGY AND [address] [place] [address] [facility] Fibrinogen (12/04/2017 10:12 PM) Fibrinogen 196 (L) 200 - 450 mg/dL [facility] DEPARTMENT OF PATHOLOGY AND [facility] MEDICINE Specimen Blood Performing Organization Address [facility] Phone Number [facility] DEPARTMENT OF PATHOLOGY AND [address] [place] [address] [facility] Uric acid level (12/04/2017 10:12 PM) Uric acid 8.9 (H) 2.4 - 5.7 mg/dL [facility] DEPARTMENT OF PATHOLOGY AND GENOMIC MEDICINE Specimen Plasma specimen Performing Organization Address [facility] Phone Number [facility] DEPARTMENT OF PATHOLOGY AND [address] [place] [address] [facility] Lactic acid level (12/04/2017 10:12 PM) Lactic acid 1.9 0.5 - 2.2 mmol/L [facility] DEPARTMENT OF PATHOLOGY AND GENOMIC MEDICINE Specimen Plasma specimen Performing Organization Address [facility] Phone Number [facility] DEPARTMENT OF PATHOLOGY AND [address] [place] [address] [facility] Direct Janine' (JESENIA) (07/01/2017 5:13 AM) IgG Janine NEG [facility] DEPARTMENT OF PATHOLOGY AND GENOMIC MEDICINE Anti-complement NEG [facility] DEPARTMENT OF PATHOLOGY AND [facility] MEDICINE Specimen Blood Performing Organization Address [facility] Phone Number [facility] DEPARTMENT OF PATHOLOGY AND [address] [place] [address] [facility] Immunofixation, serum (07/01/2017 5:13 AM) Immunofixation, serum SEE COMMENTComment: See [facility] DEPARTMENT OF electrophoresis report below. PATHOLOGY AND [facility] MEDICINE Specimen Serum Performing Organization Address [facility] Phone Number [facility] DEPARTMENT OF PATHOLOGY AND [address] [place] [phone] [place] [address] Serum electrophoresis (07/01/2017 5:13 AM) Protein 6.0 (L) 6.3 - 8.3 g/dL [facility] DEPARTMENT OF Comment: PATHOLOGY AND Rousseau 4.6-7.0 g/dL GENOMIC [facility] 1 week 4.4-7.6 g/dL 7 months-1year5.1-7.3 g/dL 1-2 years5.6-7.5 g/dL >3 years6.0-8.0 g/dL 18-150 6.3-8.3 g/dL SPE albumin 4.97 4.00 - 5.30 g/dL [facility] DEPARTMENT OF PATHOLOGY AND GENOMIC MEDICINE SPE alpha 1 0.09 (L) 0.10 - 0.25 g/dL [facility] DEPARTMENT OF PATHOLOGY AND GENOMIC MEDICINE SPE alpha 2 0.14 (L) 0.58 - 0.84 g/dL [facility] DEPARTMENT OF PATHOLOGY AND GENOMIC MEDICINE SPE beta 0.19 (L) 0.50 - 1.10 g/dL [facility] DEPARTMENT OF PATHOLOGY AND GENOMIC MEDICINE SPE gamma 0.61 0.60 - 1.30 g/dL [facility] DEPARTMENT OF PATHOLOGY AND GENOMIC MEDICINE SPE extended See Comment [facility] DEPARTMENT OF interpretation Comment: PATHOLOGY AND Abnormal serum protein study due to the presence of a band in the gamma GENOMIC MEDICINE region that immunofixes as monoclonal IgG [place]. This band is present at a concentration of 0.1 g/dL. Uninvolved gamma globulins are slightly decreased. Alpha-2 globulins are decreased most likely due to decreased haptoglobin and/or alpha-2 macroglobulin. Total protein is slightly decreased.These results are consistent with a monoclonal gammopathy of undetermined significance (MGUS) although a B-cell dyscrasia is not excluded.[id number] [facility] interpretation See CommentComment: Anne-Marie [facility] DEPARTMENT OF MD Cayla; Liv Rodriguez PATHOLOGY AND Huy MEL[place]REZ GENOMIC MEDICINE Specimen Serum Performing Organization Address [facility] Phone Number [facility] DEPARTMENT [facility] AND [address] [place] [address] Haptoglobin (07/01/2017 5:13 AM) Haptoglobin <10 (L) 30 - 200 mg/dL [facility] DEPARTMENT OF PATHOLOGY AND GENOMIC MEDICINE Specimen Plasma specimen Performing Organization Address [facility] Phone Number [facility] PATHOLOGY AND [address] [place] [address] GENOMIC MEDICINE Manual differential (06/30/2017 6:33 AM) Manual differential PERFORMED [facility] DEPARTMENT OF PATHOLOGY AND GENOMIC MEDICINE Neutrophils 58.0 39.0 - 69.0 % [facility] DEPARTMENT OF PATHOLOGY AND GENOMIC MEDICINE Lymphocytes 23.0 (L) 25.0 - 45.0 % [facility] DEPARTMENT OF PATHOLOGY AND GENOMIC MEDICINE Monocytes 11.0 (H) 0.0 - 10.0 % [facility] DEPARTMENT OF PATHOLOGY AND GENOMIC MEDICINE Eosinophils 6.0 (H) 0.0 - 5.0 % [facility] DEPARTMENT OF PATHOLOGY AND GENOMIC MEDICINE Basophils 0.0 0.0 - 1.0 % [facility] DEPARTMENT OF PATHOLOGY AND GENOMIC MEDICINE Metamyelocytes 1 % [facility] DEPARTMENT OF PATHOLOGY AND GENOMIC MEDICINE Promyelocytes 0 % [facility] DEPARTMENT OF PATHOLOGY AND GENOMIC MEDICINE Plasma cells 1 % [facility] DEPARTMENT OF PATHOLOGY AND GENOMIC MEDICINE Platelet slide review Mkd decreased (A) [facility] DEPARTMENT OF PATHOLOGY AND GENOMIC MEDICINE Anisocytosis Moderate [facility] DEPARTMENT OF PATHOLOGY AND GENOMIC MEDICINE Performing Organization Address [facility] Phone Number [facility] DEPARTMENT PATHOLOGY AND [address] [place] [address] MEDICINE US Abdominal Doppler (06/29/2017 1:20 PM) Narrative Performed At EXAMINATION:US ABDOMINAL DOPPLER [facility] CLINICAL HISTORY:cirrhosis COMPARISON:None. 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 Performing Organization Address City/State/Zipcode Phone Number [facility] [address] [place] [address] Hemochromatosis (HFE) 3 mutations (06/25/2017 5:01 AM) HFE PCR specimen Whole Blood [facility] C282Y hemochromatosis mutation Negative [facility] H63D hemochromatosis mutation Negative [facility] S65C hemochromatosis mutation Negative [facility] Hemochromatosis mutation See Note [facility] interpretation Comment: Indication for testing: Carrier screening [...] test is performed pursuant to an agreement with[employer]. Test developed and characteristics determined by [facility]. See Compliance Statement C: [employer]/ Performed by [facility], [address] [place], [place] [id number] [email or web address], Myke Lorenzo MD - Lab. Director Specimen Serum Performing Organization Address [facility]/Zipcode Phone Number [address] [address] Hemoglobin & hematocrit (06/24/2017 12:55 PM)Only the most recent of2 resultswithin the time period is included. HGB 7.8 (L) 12.0 - 16.0 g/dL [facility] DEPARTMENT OF PATHOLOGY AND GENOMIC MEDICINE HCT 23.9 (L) 37.0 - 47.0 % [facility] DEPARTMENT OF PATHOLOGY AND GENOMIC MEDICINE Specimen Blood Performing Organization Address City/[facility]/Zipcode Phone Number [facility] DEPARTMENT OF PATHOLOGY AND [address] [place] [address] [facility] MED[facility] Pv duplex venous lower extremity (06/24/2017 10:43 AM) Narrative Performed At [facility] Lower Extremity Venous Report [address] [place] [address] Pat.Name:SUKHJINDER HOPKINS Pat.ID:[id number] .Date: 11/30/2017Refer.MD:DANNY STEEN MD Exam Time: 10:09:00 AM Study Type:LE Venous DOBAge:1955,62Y Sex: FEMALE Sonogrphr: CIRO MinayaTPat. Stat.:Inpatient Room:[facility] TapeVol: [place], CPT - 4: 44603 Echo Event ID:[id number] Order ID:[id number] Reason for Study:Bilateral leg edema and abdominal [...] Radiology Results In - 06/24/2017 2:44 PM [facility] Vascular Ultrasound Laboratory Lower Extremity Venous Report [address] [place] [address] Pat.Name: SUKHJINDER HOPKINS Pat.ID: [id number] .Date: 06/24/2017 Refer.MD: DANNY STEEN MD Exam Time: 10:09:00 AM Study Type:LE Venous Age: 11 1955,62Y Sex: FEMALE Sonogrphr: Brandi Alcaraz RVT Pat. Stat.:Inpatient Room: [facility] Tape Vol: [place], CPT - 4: 78373 Echo Event ID:[id number] Order ID: [id number] Reason for Study:Bilateral leg edema and abdominal [...] Signed 06/24/2017 02:44 PM Shelli Miller MD, [facility] Performing Organization Address [facility]/State/Zipcode Phone Number [facility] [address] [place] [address] Echocardiogram complete w contrast and 3D if needed (06/24/2017 9:39 AM) Narrative Performed At [facility] Echocardiography Report [address] [place] [address] Pat.Name:SUKHJINDER HOPKINS Pat.ID:[id number] .Date: 06/24/2017Refer.MD:ROCHELLE FIGUEROA MD Exam Time: 8:29:00 AMStudy Type:Routine Echo Height:61inWeight: 153lb BSA: 1.69 m2 DOBAge:1955,62Y Sex: FEMALEBP:165/80 HR:85 bpm Sonogrphr: Natividad Romero, CAROLINE, Jennifer Parker. Stat.:Inpatient Room:M681 Study Status:Final Echo Event ID:[id number] Order ID:[id number] Reason for Study:Cirrhosis, rule out CHF or [...] LVOT TVI42.2 cmLVOT CI5.4 l/m/m2 LVOT Tm338 oocbVO64 bpm LVOT SV107.3 ml 2D Parasternal Long Irmo LVOT 2 cmLA Ds4 cm LVIDd5.3 cmIndex3.2 cm/m Ao Rtd 2.9 cm Index1.7 cm/m LVIDs2.7 cmLV Ewfp418.6 g(87-129) LV%fs 49.2 % LVM Uqjfc051.2 g/m2 IVSd 1 cmRWT0.4 LVPWd1.1 cm LA Sng Plane LA Area 24.1 cm2(8.8-23.4) LA Vol78.6 ml Index46.5 ml/m LA LngAx 6.3 cm RA Sng Plane RA Area 15.7 cm2(8.3-19.5) RA Vol39.8 ml Index23.6 ml/m RA LngAx 5 cm Signed 06/24/2017 02:15 PM Malathi Keys M.D. Procedure Note Interface, Radiology Results In - 06/24/2017 2:15 PM MACHINE PRECISION ENGRAVER Echocardiography Report [address] [place] [address] Pat.Name: SUKHJINDER HOPKINS Pat.ID: [id number] .Date: 06/24/2017 Refer.MD: ROCHELLE FIGUEROA MD Exam Time: 8:29:00 AM Study Type:Routine Echo Height: 61in Weight: 153lb BSA: 1.69 m2 Age: 11 1955,62Y Sex: FEMALE BP: 165/80 HR: 85 bpm Sonogrphr: Natividad Romero RDCS, Jennifer Jaquez Pat. Stat.:Inpatient Room: [facility] Study Status:Final Echo Event ID:[id number] Order ID: [id number] Reason for Study:Cirrhosis, rule out CHF or [...] LVOT SV 107.3 ml 2D Parasternal Long [place]o LVOT 2 cm LA Ds 4 cm [...] Signed 06/24/2017 02:15 PM Malathi Keys M.D. Performing Organization Address City/[facility]/Zipcode Phone Number [facility] [address] [place] [address] Thyroperoxidase antibody (06/24/2017 5:32 AM) Thyroperoxidase Ab 1.6 0.0 - 9.0 IU/mL [facility] DEPARTMENT OF PATHOLOGY AND GENOMIC MEDICINE Specimen Serum Performing Organization Address [facility] Phone Number [facility] DEPARTMENT OF PATHOLOGY AND [address] [place], [place] [phone] GENOMIC MEDICINE WANG (06/24/2017 4:00 AM) WANG screen Not Detected Not-Detected [facility] DEPARTMENT OF PATHOLOGY AND GENOMIC MEDICINE Specimen Blood Performing Organization Address [facility] Phone Number [facility] DEPARTMENT OF PATHOLOGY AND [address] [place], [place] [phone] GENOMIC MEDICINE XR Chest 1 Vw (06/23/2017 11:43 AM) Narrative Performed At EXAMINATION:XR CHEST 1 VW [facility] CLINICAL HISTORY:SHORTNESS OF BREATH COMPARISON:None IMPRESSION: Lungs are slightly hypoinflated. No definite infiltrate, consolidation, pleural effusion or pneumothorax. Enlarged cardiac silhouette. Osseous degenerative changes. [facility]-[id number] Procedure Note Interface, Radiology Results Incoming - 06/23/2017 12:04 PM MACHINE PRECISION ENGRAVER EXAMINATION: XR CHEST 1 VW CLINICAL HISTORY: SHORTNESS OF BREATH COMPARISON: None IMPRESSION: Lungs are slightly hypoinflated. No definite infiltrate, consolidation, pleural effusion or pneumothorax. Enlarged cardiac silhouette. Osseous degenerative changes. [facility]-[id number] Performing Organization Address [facility] Phone Number [facility] [address] [place] [address] XR Abdomen 1 Vw (06/23/2017 11:42 AM) Narrative Performed At EXAMINATION:XR ABDOMEN 1 [facility] CLINICAL HISTORY:Distention COMPARISON:None. FINDINGS: There is gas in the colon. No dilated loops of small bowel are seen. IMPRESSION: As above [facility]-[id number] Procedure Note [facility], Radiology Results Incoming - 06/23/2017 12:10 PM MACHINE PRECISION ENGRAVER EXAMINATION: XR ABDOMEN 1 VW CLINICAL HISTORY: Distention COMPARISON: None. FINDINGS: There is gas in the colon. No dilated loops of small bowel are seen. IMPRESSION: As above [facility]-[id number] Performing Organization Address [facility] Phone Number [facility] [address] [place] [address] [place] Limited (06/23/2017 11:31 AM) Narrative Performed At EXAMINATION:US LIMITED [facility] CLINICAL HISTORY:ASCITES, Max removal of ascites 5 liters COMPARISON:None. IMPRESSION: 1.Limited abdominal ultrasound demonstrates small amount of fluid in the upper quadrants with the various trace amount of fluid in the right lower quadrant and a very small amount of fluid in left lower quadrant. Therapeutic paracentesis was not performed due to the small quantity of ascites. [facility]-[id number] Procedure Note [facility], Radiology Results Incoming - 06/24/2017 8:57 AM MACHINE PRECISION ENGRAVER EXAMINATION: US LIMITED CLINICAL HISTORY: ASCITES, Max removal of ascites 5 liters COMPARISON: None. IMPRESSION: 1. Limited abdominal ultrasound demonstrates small amount of fluid in the upper quadrants with the various trace amount of fluid in the right lower quadrant and a very small amount of fluid in left lower quadrant. Therapeutic paracentesis was not performed due to the small quantity of ascites. [facility]-[id number] Performing Organization Address [facility] Phone Number [facility] [address] [place] [address] ALT (SGPT) (06/22/2017 11:43 PM) ALT 14 5 - 50 U/L [facility] DEPARTMENT OF PATHOLOGY AND GENOMIC MEDICINE Specimen Plasma specimen Performing Organization Address [facility] Phone Number [facility] DEPARTMENT OF PATHOLOGY AND [address] [place] [address] GENOMIC MEDICINE AST (SGOT) (06/22/2017 11:43 PM) AST 35 10 - 35 U/L [facility] DEPARTMENT OF PATHOLOGY AND GENOMIC MEDICINE Specimen Plasma specimen Performing Organization Address [facility] Phone Number [facility] DEPARTMENT OF PATHOLOGY AND [address] [place] [address] GENOMIC MEDICINE Potassium level (06/22/2017 11:43 PM) Potassium 3.4 (L) 3.5 - 5.0 mEq/L [facility] DEPARTMENT OF PATHOLOGY AND GENOMIC MEDICINE Specimen Plasma specimen Performing Organization Address [facility] Phone Number [facility] DEPARTMENT OF PATHOLOGY AND [address] [place] [address] GENOMIC MEDICINE Bilirubin direct (06/22/2017 11:43 PM) Bilirubin direct 1.7 (H) 0.0 - 0.3 mg/dL [facility] DEPARTMENT OF PATHOLOGY AND GENOMIC MEDICINE Specimen Plasma specimen Performing Organization Address [facility] Phone Number [facility] DEPARTMENT OF PATHOLOGY AND [address] [place] [address] GENOMIC MEDICINE after 01/10/2017 Insurance Payer Benefit Plan / Group Subscriber ID Type Phone Address BCBS BCBS CHOICE PPO/[employer] PPO xxxxxxxxxxxx PPO [phone] [address]
[2018-01-11 08:18] LABS: MPV 8.2 fL (7.6-11.3)
[2018-01-11 08:25] LABS: Protime INR 1.26
[2018-01-11 10:02] LABS: Platelet Estimate DECR
--- NOTE | 2018-01-11 11:37 | RAD REPORT ---
EXAM DESCRIPTION: US - Paracentesis Proc Guidance - 01/11/2018 10:39 am CLINICAL HISTORY: Ascites, cirrhosis COMPARISON: Paracentesis October 29, 2017 TECHNIQUE: The patient presents for ultrasound-guided paracentesis. The procedure, risks and altern atives were discussed with the patient in detail. Oral and written consent were obtained. Time out p rocedure was performed. The patient had no contraindicated allergy or medication history. Patient pl atelet count was 72. PT/INR values were within acceptable limits. Preliminary sonographic evaluation identified mid to upper right abdomen access site. Patient has lit tle fluid in either lower quadrant even with reverse Trendelenburg positioning. The skin and deeper t issues were anesthetized with 1 percent lidocaine. Under direct sonographic visualization, a paracen tesis catheter was advanced into the peritoneal cavity. Approximately 15 mL of ascites retained for o rdering physician requested studies. Approximately 2.5 liters of ascites was removed. After this halle tity fluid removal the patient complained of abdominal pain and mass for the catheter to be removed. No visible blood in the ascites. Sonographic evaluation showed no hematoma or mass within the soft ti ssues. Direct pressure was applied to the puncture site and pathway to the peritoneal cavity. Hemosta sis was obtained. Sterile dressing applied to the puncture site. Postprocedure care and precaution in structions were given to the patient. Patient was transferred back to same-day surgery area for pendi ng 50 gram albumin infusion as requested by the referring physician. IMPRESSION: Ultrasound-guided paracentesis as detailed. Approximately 2.5 liters of ascites was inessa matthew. Small quantity was retained for requested laboratory studies.
[2018-01-11] MEDS ORDERED: ALBUMIN HUMAN 25% 50 ML IV ONE (12:00)
[2018-01-11] MEDS ORDERED: ALBUMIN HUMAN 25% 100 ML IV ONE (12:00)
== END 2018-01-11 12:30 | disposition home or self-care (01) ==
LOC: DS 06:39
PROVIDERS: ATTEND Internal Medicine Hepatology
PROC: 0W9G3ZX Drainage of Peritoneal Cavity, Percutaneous Approach, Diagnostic (ICD-10-PCS; principal; 2018-01-11)
PROC: BW40ZZZ Ultrasonography of Abdomen (ICD-10-PCS; 2018-01-11)
DX: R18.8 Other ascites (principal); K74.60 Unspecified cirrhosis of liver
CPT/HCPCS: 36415; 49083; 85049; 85610; 85730; 87070; 87075; 87205; 96365; P9047